=== PATIENT | male | born 1945 | race Caucasian/White ===

== ENCOUNTER 2017-01-14 13:00 | Outpatient (CLI) | payer MEDICARE, BC ==
[2013-08-18 08:54] VITALS: BMI 31.9
[~2017-01-14 13:00] MED LIST: BENADRYL INJ50 MG/ML IV; BENADRYL50 MG PO; CHILDREN'S ASPI81 MG PO; COZAAR100 MG PO; ELAVIL25 MG PO; GLUCAGON1 MG/KIT IM; GLUCAGON1 MG/KIT SQ; GLUCOPHAGE500 MG PO; HUMALOG 30100 UNITS/ SC; INSTA-GLUCOSE31 GM PO; LANTUS INSULIN10 ML SC; LEVOTHROID88 MCG PO; LOPRESSOR50 MG PO; LOVENOX30 MG/0.3 SQ; MYLANTA LIQUID355 ML PO; NARCAN INJ0.4 MG/ML IV; ONDANSETRON4 MG/2 M3 IV; PERCOCET 10/3251 TA1 PO; SALINE FLUSH10 ML IJ; VANCOMYCIN1 GM/2501 IV; ZOFRAN4 MG PO
[2017-01-14] MEDS ORDERED: NOVOLIN 70/30 110 ML SC (14:37)
[2017-01-14] MEDS ORDERED: NOVOLOG MIX 70/10 ML SQ (14:37)
[2017-01-14] MEDS ORDERED: NORVASC5 MG PO (14:40)
[2017-01-14] MEDS ORDERED: NEURONTIN 300300 MG PO (14:41)
[2017-01-14] MEDS ORDERED: MOBIC7.5 MG PO (14:41)
[2017-01-14] MEDS ORDERED: LIPITOR20 MG PO (14:42)
[2017-01-14] MEDS ORDERED: ACTOS15 MG PO (14:42)
[2017-01-14 15:09] LABS: HEMATOCRIT 45.4 % (42.0-54.0); HEMOGLOBIN 14.9 g/dL (13.5-17.5); MCH 28.5 pg (26.0-34.0); MCHC 32.8 g/dL (31.0-37.0); MEAN PLATELET VOLUME 11.4 fL (7.4-10.4); RBC 5.22 10x6/uL (4.20-6.10); RDW 13.2 % (11.5-14.5); WBC 8.8 10x3/uL (4.8-10.8)
[2017-01-14 15:23] LABS: ANION GAP 9.4 mmol/L (8-16); CALCIUM 10.5 mg/dL (8.5-10.1); CARBON DIOXIDE 32.8 mmol/L (21.0-32.0); CREATININE - SERUM 1.1 mg/dL (0.6-1.3); POTASSIUM - SERUM 4.2 mmol/L (3.5-5.1)
== END 2017-01-14 23:59 | disposition home or self-care (01) ==
LOC: D.PAN 13:00 → D.OPS 01-15 11:15 → EDSTATUS 01-15 11:15
PROVIDERS: Anesthesiology
DX: M65.30 Trigger finger, unspecified finger (principal); Z01.810 Encounter for preprocedural cardiovascular examination; Z01.811 Encounter for preprocedural respiratory examination; Z01.812 Encounter for preprocedural laboratory examination; Z53.9 Procedure and treatment not carried out, unspecified reason

== ENCOUNTER 2018-06-29 22:08 | Inpatient (IN) | payer MEDICARE, BC ==
[~2018-06-29] VITALS: Ht 188 cm; Wt 131.8 kg
--- NOTE | ~2018-06-29 | HEMODYNAMI ---
PATIENT:ROMARIO CASTRO JR MEDICAL RECORD: [id number] : 43 LOCATION:[facility] D.2134 ADMISSION DATE: 06/30/18 Generatedon:07/01/201811:47 Patient name: ROMARIO CASTRO Patient #: [id number] SSN: : 1945 Date of study: 07/01/2018 Page: Of Hemodynamic Procedure Report Patient Data Patient Demographics Procedure consent was obtained First Name: ROMARIO Gender: Male Last Name: GLORIA Suffix: [facility] Initial: Susie : 1945 Patient #: [id number] Age: 72 year(s) Race: Unknown Additional ID: [id number] Contact details Address: [address] [address] State: [place] City: [place] Zip code: [address] Past Medical History Allergies Allergen Reaction Date Comments Reported Other allergy 06/30/2018 acetamonophen, adhesive, indomethicin, oxycodone Admission Admission Data Admission Date: 06/30/2018 Admission Time: 0:26 Room #: D.2134 Lab Results Lab Result Date: 06/30/2018 Lab Result Time: 0:00 Biochemistry Name Units Result Min Max BUN mg/dl 21 --(----)-* 7 18 Creatinine mg/dl 1.1 --(--*-)-- 0.6 1.3 CBC Name Units Result Min Max Hemoglobin g/dl 13.5 --(*---)-- 13.5 17.5 Procedure Procedure Types Cath Procedure PCI Procedure Coronary Stent Coronary Stent Initial Procedure Description Procedure Date Procedure Date: 07/01/2018 Procedure Start Time: 11:30 Procedure End Time: 11:46 Procedure Staff Name Function Ace Armas MD Performing Physician Neftali Marvin RN Nurse Khoi Reynoso RT Scrub Eliud Renee RT Monitor Procedure Data Cath Procedure Fluoroscopy Diagnostic fluoroscopy Total fluoroscopy Time: 1.6 time: 1.6 min min Diagnostic fluoroscopy Total fluoroscopy dose: 681 dose: 681 mGy mGy Contrast Material Contrast Material Type Amount (ml) Isovue 300 67 Entry Location Entry Primary Successful Side Size Upsize Upsize Entry Closure Succes sful Closure Location (Fr) 1 (Fr) 2 (Fr) Remarks Device Remarks Femoral Right 6 Fr Exoseal artery Short Estimated blood loss: 10 ml Procedure Complications No complications Procedure Medications Medication Administration Route Dosage Oxygen etCO2 Nasal cannula 2 l/min Lidocaine 2% added to field 20 Heparin Flush Bag added to field 2 bags (1000units/500ml NS) 0.9% NaCl I.V. 100 ml/hr Versed I.V. 2 mg Fentanyl I.V. 100 mcg Lopressor I.V. 10 mg Heparin Bolus I.V. 4000 units Hemodynamics Rest HGB: 13.5 (g/dl) Heart Rate: 104 (bpm) Snapshots Pre Cath Intra NCS Post Cath Vital Signs Time Heart Resp SPO2 etCO2 NIBP Rhythm Pain Sedation Rate (ipm) (%) (mmHg) (mmHg) Status Level (bpm) 11:16:41 115 19 94 40.1 116/70(92) NSR 0 (11) 10(A) , No pain 11:20:47 104 12 92 21.9 122/74(92) NSR 0 (11) 10(A) , No pain 11:24:57 106 13 93 0 129/77(98) NSR 0 (11) 10(A) , No pain 11:29:03 106 15 94 0 117/77(97) NSR 0 (11) 10(A) , No pain 11:33:13 94 12 93 0 122/73(95) NSR 0 (11) 9(A) , No pain 11:37:20 91 17 94 29 110/63(81) NSR 0 (11) 9(A) , No pain 11:41:30 89 12 95 31.7 109/61(79) NSR 0 (11) 10(A) , No pain 11:45:38 90 16 95 113/66(78) NSR 0 (11) 10(A) , No pain Medications Time Medication Route Dose Verified Delivered Reason Notes Effectiveness by by 11:15:15 Oxygen etCO2 2 Ace Lindsay used for Nasal l/min Pawel Marvin ore charger cannula 11:15:23 Lidocaine 2% added 20ml Ace Bello for local to vial Pawel Armas MD anesthetic field 11:15:29 Heparin Flush added 2 Ace Bello used for Bag to bags Pawel Armas MD procedure (1000units/500ml field NS) 11:15:36 0.9% NaCl I.V. 100 Ace Lindsay Per physician ml/hr Pawel Marvin RN 11:29:42 Versed I.V. 2 mg Ace Lindsay for sedation Pawel Marvin RN 11:29:48 Fentanyl I.V. 100 Ace Lindsay for sedation mcg Pawel Marvin RN 11:30:55 Lopressor I.V. 10 mg Ace Lindsay Per physician Pawel Marvin RN 11:33:05 Heparin Bolus I.V. 4000 Ace Lindsay for verif ied units Pawel Marvin RN anticoagulation with dr armas Procedure Log Time Note 10:35:13 Neftali Marvin RN sent for patient. Start room use. 10:54:22 Time tracking: Regular hours (M-F 7:00 - 5:00) 10:54:26 Plan of Care:Hemodynamics will remain stable., Cardiac rhythm will remain stable., Comfort level will be maintained., Respiratory function will remain adequate., Patient/ family verbilizes understanding of procedure., Procedure tolerated without complication., Recovers from procedure without complications.. 11:03:01 Patient received from PCU to CCL 2 Alert and oriented. Tansferred to table in Supine position. 11:03:02 Warm blankets applied, and jessica hugger turned on for patient comfort. 11:03:03 Correct patient and procedure confirmed by team. 11:03:04 Signed procedure consent form obtained from patient. 11:03:05 ECG and BP/O2 sat monitors applied to patient. 11:15:15 Oxygen 2 l/min etCO2 Nasal cannula was administered by Neftali Marvin RN; used for procedure; 11:15:23 Lidocaine 2% 20ml vial added to field was administered by Ace Armas MD; for local anesthetic; 11:15:29 Heparin Flush Bag (1000units/500ml NS) 2 bags added to field was administered by Ace Armas MD; used for procedure; 11:15:36 0.9% NaCl 100 ml/hr I.V. was administered by Neftali Marvin RN; Per physician; 11:15:39 Vital chart was started 11:19:28 Baseline sample Acquired. 11:19:34 Rhythm: sinus rhythm 11:19:35 Full Disclosure recording started 11:19:38 H&P Date Dictated: 07/01/2018 Within 30 days and on chart.. 11:19:39 Pre-procedure instructions explained to patient. 11:19:39 Pre-op teaching completed and patient verbalized understanding. 11:19:41 Family in patients room. 11:19:42 Patient NPO since Midnight. 11:19:43 Is the patient allergic to Iodine/contrast media? No. 11:19:44 Is patient on blood thinner?Yes 11:19:47 ACC The patient was administered the following blood thiners within the last 24 hours: ACCPlavix 11:20:02 Patient diabetic? Yes. 11:20:03 If diabetic: On Metformin? No 11:20:08 Previous problem with sedation/anesthesia? No ? 11:20:09 Snore? Yes 11:20:11 Sleep apnea? No 11:20:12 Deviated septum? No 11:20:13 Opens mouth fully? Yes 11:20:14 Sticks out tongue? Yes 11:20:16 Airway obstruction? No ? 11:20:19 Dentures? No ? 11:28:00 Unable to palpate left distal pulse due to left aka. 11:28:19 Patient pain scale 0/10 ?. 11:28:22 IV patent on arrival in left forearm with 0.9% NaCl at [facility]. 11:28:24 Lab results completed and on chart. 11:28:26 Left groin area was prepped with chlora-prep and draped in sterile fashion 11:28:27 Alarms reviewed by R. N. 11:28:27 Sharps counted by scrub and verified by R.N. 11:28:28 --------ALL STOP TIME OUT------ 11:28:29 Final Timeout: patient, procedure, and site verified with staff and physician. All members of the team are in agreement. 11:28:33 Left groin site verified by team. 11:28:36 Physical assessment completed. ASA score P 3 - A patient with severe systemic disease as per Ace Armas MD. 11:28:39 Sedation plan: IV Moderate Sedation Medication:Versed, Fentanyl 11::42 Versed 2 mg I.V. was administered by Neftali Marvin RN; for sedation; 11:29:48 Fentanyl 100 mcg I.V. was administered by Neftali Marvin RN; for sedation; 11:30:38 Use device set Radial Dx or PCI 11:30:42 Use device set TAUTH PCI 11:30:45 Procedure started. 11:30:51 Local anesthetic to left femerol artery with Lidocaine 2% by Ace Armas MD.INITIAL ACCESS ONLY 11:30:55 Lopressor 10 mg I.V. was administered by Neftali Marvin RN; Per physician; 11:31:10 A 6 Fr Short sheath was inserted into the Right Femoral artery 11:31:25 ACIST Syringe (75634) opened to sterile field. 11:31:25 Medline Cath Pack ([id number]) opened to sterile field. 11:31:26 Bag Decanter (2002) opened to sterile field. 11:31:27 Tegaderm 4 x 4 (1626W) opened to sterile field. 11:31:29 ACIST Manifold (01681) opened to sterile field. 11:31:30 ACIST Hand Control (01392) opened to sterile field. 11:31:31 DIAGNOSTIC WIRE .035 260cm J wire (052042) opened to sterile field. 11:31:36 INFLATOR Merit BasixCompak (PX9702) opened to sterile field. 11:31:39 CHOICE PT Extra Support 182cm wire ([id number]) opened to sterile field. 11:31:41 GUIDE 6FR XBLAD 3.5 catheter ([id number]) opened to sterile field. 11:31:43 SHEATH Prelude 6Fr 0.035 (CWE-1L-76-035) opened to sterile field. 11:31:56 6 Fr XBLAD 3.5 guide catheter was inserted over the wire 11:32:48 CPTXS wire advanced. 11:33:05 Heparin Bolus 4000 units I.V. was administered by Neftali Marvin RN; for anticoagulation; verified with dr armas 11:33:19 Wire advanced across lesion. 11:34:53 Place stent Inflation Number: 1 A SADAF RX 2.5 x 18 stent ([id number]) was prepped and advanced across the Mid LAD. The stent was deployed at 15 LISA for 0:10 (min:sec). 11:35:53 EXOSEAL 6Fr (EX600) opened to sterile field. 11:35:58 Stent catheter was removed intact over wire. 11:35:59 Wire removed. 11:35:59 Guide catheter removed. 11:36:11 Sheath removed intact; hemostasis achieved with Exoseal to the Right Femoral artery. 11:36:13 Procedure ended.(Physican Out) 11:36:26 Fluoroscopy time 01.60 minutes. 11:36:58 Flurop Dose total: 681 11:36:58 Fluoroscopy dose: 681 mGy 11:37:02 Contrast amount:Isovue 300 67ml. 11:37:03 Sharps counted by scrub and verified by R.N. 11:37:05 Insertion/operative site no bleeding no hematoma. 11:38:00 Post Procedure Pulses reassessed and unchanged 11:40:06 Post-procedure physical assessment completed. ASA score P 3 - A patient with severe systemic disease as per Ace Armas MD. 11:41:12 Post procedure rhythm: sinus rhythm 11:41:16 Estimated blood loss: 10 ml 11:41:17 Post procedure instruction explained to patient.Patient verbalizes understanding. 11:41:17 Patient needs reinforcement of post procedure teaching. 11:41:29 Procedure type changed to Cath procedure, PCI procedure, Coronary Stent, Coronary Stent Initial 11:41:31 Procedure and supply charges have been captured, reviewed, submitted and are correct. 11:41:35 Procedure Complication : No complications 11:46:21 Vital chart was stopped 11:46:22 See physician's report for complete and final results. 11:46:25 Report given to PCU. 11:46:29 Patient transfered to PCU with Bed. 11:46:31 Procedure ended. 11:46:31 Full Disclosure recording stopped 11:46:34 End room use (Document Last) Intervention Summary Intervention Notes Time ActionType Lesion and Equipment Used Action# Pressure Duration Attributes 11:34:53 Place stent Mid LAD SADAF RX 2.5 x 1 15 00:10 18 stent ([id number]) Device Usage Item Name Manufacture Quantity Catalog Number Hospital Part Current Minimal Lot# / Charge Number Stock Stock Serial# Code ACIST Syringe Acist 1 71619 808926 152606 490486 20 (79155) Swyzzle Medline Cath Medline 1 [id number] 278224 96676 634412 5 Pack ([id number]) Bag Decanter Microtek 1 2002S 306488 68414 279187 5 (2001S) Medical Inc. Tegaderm 4 x 4 3M 1 1626W 387130 540376 836008 5 (1626W) ACIST Manifold Acist 1 10596 603034 925054 214982 5 (39955) Medical Systems Inc ACIST Hand Acist 1 86079 492605 180417 151823 5 Control (31211) Medical Systems Inc DIAGNOSTIC WIRE St Niraj 1 517294 508710 146643 513312 30 .035 260cm J wire (559216) INFLATOR Merit Merit 1 OL0826 291406 146147 164302 15 BasixIlex [employer] Medical (CQ4586) CHOICE PT Extra Calipatria 1 [id number] 470902 214235 213714 5 Support 182cm Scientific wire ([id number]) GUIDE 6FR XBLAD Cardinal 1 16382666 388433 994535 349928 10 3.5 catheter Health (54274982) SHEATH Prelude Merit 1 XRL-2W-98-35 842495 6153975 377070 5 6Fr 0.035 Medical (TJI-6R-50-035) SADAF RX 2.5 x Medtronic 1 [id number] 876082 5395407 939356 5 [id number] 18 stent ([id number]) EXOSEAL 6Fr Cardinal 1 EX600 278585 767768 560535 10 (EX600) Health Signature Audit [place] Stage Time Signature Unsigned Intra-Procedure 07/01/2018 Eliud Renee 11:46:57 AM RT(R) Signatures Monitor : Eliud Renee RT Signature : Date : Time : [address] [address]
--- NOTE | ~2018-06-29 | OP ---
PATIENT NAME: ROMARIO CASTRO JR MEDICAL RECORD: [id number] :43 LOCATION:D.M2 D.2134 ADMISSION DATE:06/30/18 SURGEON: BRUNO CHRISTIANSON MD DATE OF OPERATION: 06/30/2018 PROCEDURES: 1. PTCA stent RCA. 2. Left heart catheterization. 3. Selective coronary angiography. 4. Left ventriculogram. INDICATION: Angina and coronary artery disease. PROCEDURE IN DETAIL: After informed consent was obtained and after a detailed description of risks, benefits as well as alternative therapies, the patient elected to proceed with angiogram and angioplasty. The right radial area was prepped and draped in normal sterile fashion. Right radial artery was cannulated via modified Seldinger technique with placement of 6-Thai sheath. All catheters exchanged through this sheath. FINDINGS: Left ventriculogram was performed in standard 30-degree HASKINS view, reveals good cardiac wall motion throughout all segments. Overall ejection fraction estimated 60%. SELECTIVE CORONARY ANGIOGRAPHY: 1. Left main is with no significant angiographic disease. 2. Left anterior descending has 90% stenosis in the mid vessel. 3. Left circumflex has 80% and 90% stenosis mid vessel. 4. Right coronary artery has 99% stenosis times 2 throughout the mid distal vessel. PTCA STENT OF THE RCA: The stent used was a 2.25 x 38 mm Valdo. Proximally, there is 80% stenosis. This is a 3.0 x 12 Valdo. Result was 0% residual stenosis. OVERALL IMPRESSION: Successful PTCA stent of the RCA going from 99% initial stenosis to 0% residual. PLAN: PTCA stent of the circumflex and LAD in the near future. TRANSINT:[id number] Voice Confirmation ID: [id number] DOCUMENT ID: [id number] BRUNO CHRISTIANSON MD at 1914 CC: [id number] DICTATION DATE: 06/30/18 1147 FILM MAKER: 06/30/18 1257 DIS IN 07/03/18 [id number] [place] [address]
--- NOTE | ~2018-06-29 | MORECARE ---
CASE MANAGEMENT DISCHARGE SUMMARY PATIENT: ROMARIO CASTRO JR UNIT: [id number] ADM DATE: 06/30/18 AGE: 72 : 43 SEX: M ROOM/BED: D.4067 AUTHOR: VAL,DOC PHYSICIAN: REFERRING PHYSICIAN: JONNIE BARTON MD DATE OF SERVICE: 07/03/18 Discharge Plan Patient Name: ROMARIO CASTRO Facility: [facility]:[place] : 1945 Planned Disposition: Home Anticipated Discharge Date: 07/03/18 Discharge Date: 07/03/2018 Expected LOS: 3 Initial Reviewer: [email or web address] Initial Review Date: 06/30/2018 Generated: 07/03/18 4:37 pm Comments DCP- Discharge Planning Updated by [email or web address]: Rufus Woods on 07/01/18 3:[address] Patient Name: ROMARIO CASTRO Admission Status: ER Accout number: [id number] Admission Date: 06-30-2018 : 1945 Admission Diagnosis: Attending: MICK, Current LOS: 1 Anticipated DC Date: 07-02-2018 Planned Disposition: Home Primary Insurance: MEDICARE A & B Discharge Planning Comments: CM MET WITH PT AND SPOUSE IN ROOM TO DISCUSS DISCHARGE PLANNING AND NEEDS. ROMARIO CASTRO provided verbal consent to discuss current and ongoing needs with/in the presence of: SPOUSE, KEM. PT REPORTS LIVING AT HOME INDEPENDENTLY WITH SPOUSE. PT REPORTS HAVING ALL NEEDED MEDICAL EQUIPMENT FROM [employer] AND [employer]. PT HAS SMALL WHEELCHAIR FOR THE HOME, LARGE WHEELCHAIR IN HIS TRUCK AND A POWER SCOOTER. 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 PT HAS NO OUTSIDE SERVICES ASSISTING IN THE HOME. CM DISCUSSED AVAILABILITY OF HOME HEALTH, REHAB SERVICES AND MEDICAL EQUIPMENT. PT DENIES DISCHARGE NEEDS, REPORTS HIS WILL PICK HIM UP FOR DISCHARGE HOME. IMPORTANT MESSAGE FROM MEDICARE PROVIDED AND EXPLAINED. PT ASKED ABOUT HAVING HIS TRUCK MODIFIED WITH A WINCH TO MAKE IT EASIER TO GET HIS WHEELCHAIR IN AND OUT OF HIS TRUCK WELL IF IT WOULD BE COVERED BY MEDICARE. CM EXPLAINED THAT THIS IS UNKNOWN TO CM. CM CALLED [facility] WHO REFERRED CM TO DEPARTMENT OF MOTOR VEHICLES. [employer]V HAD NO INFORMATION OTHER THAN HOW TO OBTAIN PLACKARD AND LICENSE PLATES. CM PERFORMED INTERNET SEARCH AND FOUND [facility], , OPEN M-F, 8AM TO 4PM. CM LEFT MESSAGE REQUESTING INFORMATION AND PROVIDED PT AND SPOUSE THE PHONE NUMBER FOR CONTACT. PT PLANS TO DISCHARGE HOME WITH SPOUSE, DENIES NEEDS AT THIS TIME. CM TO FOLLOW AND ASSIST IF NEEDED. Molding Machine Tender: Rufus Woods DCPIA - Discharge Planning Initial Assessment Updated by [email or web address]: Rufus Woods on 07/01/18 4:21 pm * Is the patient Alert and Oriented? Yes * How many steps to enter\\exit or inside your home? RAMP * PCP DR. RICK CASTELAN * Pharmacy [facility] IN [place] * Preadmission Environment Home with Family * ADLs Independent * Equipment Other Power Chair or Electric Scooter Walker Wheelchair * Other Equipment LEFT ABOVE KNEE PROSTHESIS - [employer] - PREFERRED MEDICAL EQUIPMENT PROVIDER * List name and contact numbers for known caregivers / representatives who currently or will assist patient after discharge: KEM CASTRO, SPOUSE, * Verbal permission to speak to the caregivers and representatives has been obtained from the patient. Yes * Community resources currently utilized None * Please name any agencies selected above. NONE * Additional services required to return to the preadmission environment? No * Can the patient safely return to the preadmission environment? Yes * Has this patient been hospitalized within the prior 30 days at any hospital? No Coverage Notice Reviewer: [email or web address] - Rufus Woods Notice Issued Date-Time: 07/01/2018 16:00 Notice Type: IM Discharge Notice Notice Delivered To: Family Member Relationship to Patient: Spouse Repair Welder Name: kem castro Delivery Method: HAND - Hand Delivered Julia Days: Prior Verbal Notification: Recipient Understood Notice: Yes Recipient Signature: Yes Med Rec Note Co-signed by Attending: Coverage Notice Comment: Last DP export: 07/01/18 3:33 Patient Name: ROMARIO CASTRO Page 10217 at 1537 All edits/amendments must be made on the electronic document DICTATION DATE: 07/03/18 1536 ADMISSION NURSE: MARIA DOLORES 07/03/18 RPT#: [id number] DC DATE:07/03/18 STATUS: DIS IN [facility] [address] [facility] [place] [address] END OF REPORT
--- NOTE | ~2018-06-29 | OP ---
PATIENT NAME: ROMARIO CASTRO JR MEDICAL RECORD: [id number] :43 LOCATION:D.M2 D.2134 ADMISSION DATE:06/30/18 SURGEON: BRUNO CHRISTIANSON MD DATE OF OPERATION: 07/01/2018 PROCEDURES: 1. PTCA stent LAD. 2. Selective coronary angiography. INDICATION: Angina and coronary artery disease. PROCEDURE IN DETAIL: After informed consent was obtained and after a detailed explanation of risks, benefits as well as alternative therapies, the patient elected to proceed with angiogram and angioplasty. The left femoral area was prepped and draped in normal sterile fashion. Left femoral artery was cannulated via modified Seldinger technique with placement of 6-Syriac sheath. All catheters exchanged through this sheath. FINDINGS: The left anterior descending has 90% to 95% stenosis in the mid vessel. This was addressed with a 2.5 x 18 mm [place] stent. Result was 0% residual stenosis. OVERALL IMPRESSION: Successful PTCA stent of the LAD going from 90% to 95% initial stenosis to 0% residual. TRANSINT:[id number] Voice Confirmation ID: [id number] DOCUMENT ID: [id number] BRUNO CHRISTIANSON MD at 1914 CC: [id number] DICTATION DATE: 07/01/18 1146 SWIM INSTRUCTOR: 07/01/18 1235 DIS IN 07/03/18 [facility] [address] [place] [address]
--- NOTE | ~2018-06-29 | MORECARE ---
CASE MANAGEMENT DISCHARGE SUMMARY PATIENT: ROMARIO CASTRO JR UNIT: [id number] ADM DATE: 06/30/18 AGE: 72 : 44 SEX: M ROOM/BED: D.2134 AUTHOR: CINDY NEAL PHYSICIAN: REFERRING PHYSICIAN: JONNIE BARTON MD DATE OF SERVICE: 07/01/18 Discharge Plan Patient Name: ROMARIO CASTRO Facility: [facility]:[place] : 1945 Planned Disposition: Home Anticipated Discharge Date: 07/02/18 Discharge Date: Expected LOS: 2 Initial Reviewer: [email or web address] Initial Review Date: 06/30/2018 Generated: 07/01/18 5:23 pm DCPIA - Discharge Planning Initial Assessment Updated by [email or web address]: Rufus Woods on 07/01/18 4:21 pm * Is the patient Alert and Oriented? Yes * How many steps to enter\exit or inside your home? RAMP * PCP DR. RICK CASTELAN * Pharmacy [facility] IN [place] * Preadmission Environment Home with Family * ADLs Independent * Equipment Other Power Chair or Electric Scooter Walker Wheelchair * Other Equipment LEFT ABOVE KNEE PROSTHESIS - [employer] - PREFERRED MEDICAL EQUIPMENT PROVIDER * List name and contact numbers for known caregivers / representatives who currently or will assist patient after discharge: KEM CASTRO, SPOUSE, * Verbal permission to speak to the caregivers and representatives has been obtained from the patient. Yes * Community resources currently utilized None * Please name any agencies selected above. NONE * Additional services required to return to the preadmission environment? No * Can the patient safely return to the preadmission environment? Yes * Has this patient been hospitalized within the prior 30 days at any hospital? No Coverage Notice Reviewer: [email or web address] - Rufus Woods Notice Issued Date-Time: 07/01/2018 16:00 Notice Type: IM Discharge Notice Notice Delivered To: Family Member Relationship to Patient: Spouse Hyperbaric Nurse Name: kem castro Delivery Method: HAND - Hand Delivered Julia Days: Prior Verbal Notification: Recipient Understood Notice: Yes Recipient Signature: Yes Med Rec Note Co-signed by Attending: Coverage Notice Comment: Patient Name: ROMARIO CASTRO Page [id number] at 1623 All edits/amendments must be made on the electronic document DICTATION DATE: 07/01/181622 PLUGGER MAN: MARIA DOLORES 07/01/181622 RPT#: [id number] DC DATE: STATUS: ADM IN [facility] [address] [place] [address] END OF REPORT
--- NOTE | ~2018-06-29 | MORECARE ---
CASE MANAGEMENT DISCHARGE SUMMARY PATIENT: ROMARIO CASTRO JR UNIT: [id number] ADM DATE: 06/30/18 AGE: 72 : 44 SEX: M ROOM/BED: D.6693 AUTHOR: VAL,DOC PHYSICIAN: REFERRING PHYSICIAN: JONNIE BARTON MD DATE OF SERVICE: 07/01/18 Discharge Plan Patient Name: ROMARIO CASTRO Facility: [facility]:[place] : 1945 Planned Disposition: Home Anticipated Discharge Date: 07/02/18 Discharge Date: Expected LOS: 2 Initial Reviewer: [email or web address] Initial Review Date: 06/30/2018 Generated: 07/01/18 5:33 pm Comments DCP- Discharge Planning Updated by [email or web address]: Rufus Woods on 07/01/18 3:[address] Patient Name: ROMARIO CASTRO Admission Status: ER Accout number: [id number] Admission Date: 06-30-2018 : 1945 Admission Diagnosis: Attending: MICK, Current LOS: 1 Anticipated DC Date: 07-02-2018 Planned Disposition: Home Primary Insurance: MEDICARE A & B Discharge Planning Comments: CM MET WITH PT AND SPOUSE IN ROOM TO DISCUSS DISCHARGE PLANNING AND NEEDS. ROMARIO CASTRO provided verbal consent to discuss current and ongoing needs with/in the presence of: SPOUSE, KEM. PT REPORTS LIVING AT HOME INDEPENDENTLY WITH SPOUSE. PT REPORTS HAVING ALL NEEDED MEDICAL EQUIPMENT FROM [employer] [facility] [employer]. PT HAS SMALL WHEELCHAIR FOR THE HOME, LARGE WHEELCHAIR IN HIS TRUCK AND A POWER SCOOTER. 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 PT HAS NO OUTSIDE SERVICES ASSISTING IN THE HOME. CM DISCUSSED AVAILABILITY OF HOME HEALTH, REHAB SERVICES AND MEDICAL EQUIPMENT. PT DENIES DISCHARGE NEEDS, REPORTS HIS WILL PICK HIM UP FOR DISCHARGE HOME. IMPORTANT MESSAGE FROM MEDICARE PROVIDED AND EXPLAINED. PT ASKED ABOUT HAVING HIS TRUCK MODIFIED WITH A WINCH TO MAKE IT EASIER TO GET HIS WHEELCHAIR IN AND OUT OF HIS TRUCK WELL IF IT WOULD BE COVERED BY MEDICARE. CM EXPLAINED THAT THIS IS UNKNOWN TO CM. CM CALLED [facility] WHO REFERRED CM TO DEPARTMENT OF MOTOR VEHICLES. DMV HAD NO INFORMATION OTHER THAN HOW TO OBTAIN PLACKARD AND LICENSE PLATES. CM PERFORMED INTERNET SEARCH AND FOUND [place] [facility], , OPEN M-F, 8AM TO 4PM. CM LEFT MESSAGE REQUESTING INFORMATION AND PROVIDED PT AND SPOUSE THE PHONE NUMBER FOR CONTACT. PT PLANS TO DISCHARGE HOME WITH SPOUSE, DENIES NEEDS AT THIS TIME. CM TO FOLLOW AND ASSIST IF NEEDED. Peoplesoft Hr Developer: Rufus Woods DCPIA - Discharge Planning Initial Assessment Updated by [email or web address]: Rufus Woods on 07/01/18 4:21 pm * Is the patient Alert and Oriented? Yes * How many steps to enter\\exit or inside your home? RAMP * PCP DR. RICK CASTELAN * Pharmacy [facility] IN [place] * Preadmission Environment Home with Family * ADLs Independent * Equipment Other Power Chair or Electric Scooter Walker Wheelchair * Other Equipment LEFT ABOVE KNEE PROSTHESIS - [employer] - PREFERRED MEDICAL EQUIPMENT PROVIDER * List name and contact numbers for known caregivers / representatives who currently or will assist patient after discharge: KEM CASTRO, SPOUSE, * Verbal permission to speak to the caregivers and representatives has been obtained from the patient. Yes * Community resources currently utilized None * Please name any agencies selected above. NONE * Additional services required to return to the preadmission environment? No * Can the patient safely return to the preadmission environment? Yes * Has this patient been hospitalized within the prior 30 days at any hospital? No Coverage Notice Reviewer: [id number] - Rufus Woods Notice Issued Date-Time: 07/01/2018 16:00 Notice Type: IM Discharge Notice Notice Delivered To: Family Member Relationship to Patient: Spouse Cyber Intelligence Analyst Name: kem castro Delivery Method: HAND - Hand Delivered Julia Days: Prior Verbal Notification: Recipient Understood Notice: Yes Recipient Signature: Yes Med Rec Note Co-signed by Attending: Coverage Notice Comment: Last DP export: 07/01/18 3:23 Patient Name: ROMARIO CASTRO Page 18202 at 1633 All edits/amendments must be made on the electronic document DICTATION DATE: 07/01/18 1633 CLOUD INFRASTRUCTURE ARCHITECT: MARIA DOLORES 07/01/18 1633 RPT#: [id number] DC DATE: STATUS: ADM IN [facility] [address] [place] [address] END OF REPORT
--- NOTE | ~2018-06-29 | HEMODYNAMI ---
PATIENT:ROMARIO CASTRO JR MEDICAL RECORD: [id number] : 43 LOCATION:[facility] D.2134 ADMISSION DATE: 06/30/18 Generatedon:06/30/201811:47 Patient name: ROMARIO CASTRO Patient #: [id number] SSN: : 1945 Date of study: 06/30/2018 Page: Of Hemodynamic Procedure Report Patient Data Patient Demographics Procedure consent was obtained First Name: ROMARIO Gender: Male Last Name: GLORIA Suffix: [facility] Initial: Susie : 1945 Patient #: [id number] Age: 72 year(s) Race: Unknown Additional ID: [id number] Contact details Address: [place] [address] State: [place] City: [place] Zip code: [address] Past Medical History Allergies Allergen Reaction Date Comments Reported Other allergy 06/30/2018 acetamonophen, adhesive, indomethicin, oxycodone Admission Admission Data Admission Date: 06/30/2018 Admission Time: 0:26 Room #: D.2134 Lab Results Lab Result Date: 06/30/2018 Lab Result Time: 0:00 Biochemistry Name Units Result Min Max BUN mg/dl 21 --(----)-* 7 18 Creatinine mg/dl 1.1 --(--*-)-- 0.6 1.3 CBC Name Units Result Min Max Hemoglobin g/dl 13.5 --(*---)-- 13.5 17.5 Procedure Procedure Types Cath Procedure Diagnostic Procedure LHC LHC w/Coronaries Sedation Charges Moderate Sedation up to 15 minutes PCI Procedure Coronary Stent Coronary Stent Initial Procedure Description Procedure Date Procedure Date: 06/30/2018 Procedure Start Time: 11:26 Procedure End Time: 11:46 Procedure Staff Name Function Ace Armas MD Performing Physician Sandra Petersen RT Monitor Eulalia Mcginnis RT Scrub Sarah Villasenor RN Nurse Procedure Data Cath Procedure Fluoroscopy Diagnostic fluoroscopy Total fluoroscopy Time: 4.7 time: 4.7 min min Diagnostic fluoroscopy Total fluoroscopy dose: dose: 1354 mGy 1354 mGy Contrast Material Contrast Material Type Amount (ml) Isovue 300 105 Entry Location Entry Primary Successful Side Size Upsize Upsize Entry Closure Nugent ccessful Closure Location (Fr) 1 (Fr) 2 (Fr) Remarks Device Remarks Radial Right 6 Fr Mechanical artery Short Compression Estimated blood loss: 10 ml Diagnostic catheters Device Type Used For End Catheter Placement DIAGNOSTIC [place] 110cm 5 LV Angiography Fr catheter ([id number]) DIAGNOSTIC [place] 110cm 5 Left Coronary Fr catheter (587407) Angiography DIAGNOSTIC [place] 110cm 5 Right Coronary Fr catheter ([id number]) Angiography Procedure Complications No complications Procedure Medications Medication Administration Route Dosage 0.9% NaCl I.V. 100 ml/hr Oxygen etCO2 Nasal cannula 2 l/min Lidocaine 2% added to field 20 Heparin Flush Bag added to field 2 bags (1000units/500ml NS) Radial Cocktail added to field 1 syringe (Verapomil 2mg/Nitro 400mcg/Heparin 1500units) Versed I.V. 2 mg Fentanyl I.V. 100 mcg Versed I.V. 2 mg Fentanyl I.V. 50 mcg Lopressor I.V. 5 mg Heparin Bolus I.V. 4000 units Plavix P.O. 75 mg Versed I.V. 1 mg Hemodynamics Rest HGB: 13.5 (g/dl) Heart Rate: 111 (bpm) Snapshots Pre Cath Intra NCS Post Cath Vital Signs Time Heart Resp SPO2 etCO2 NIBP (mmHg) Rhythm Pain Sedation Rate (ipm) (%) (mmHg) Status Level (bpm) 11:06:28 111 11 96 35 153/93(118) NSR 0 (11) 10(A) , No pain 11:10:52 111 13 95 36 146/89(116) NSR 0 (11) 10(A) , No pain 11:15:12 109 20 95 37 150/92(116) NSR 0 (11) 10(A) , No pain 11:19:34 109 12 95 38.3 147/91(111) NSR 0 (11) 10(A) , No pain 11:23:57 109 11 96 38 139/90(112) NSR 0 (11) 10(A) , No pain 11:28:19 109 10 94 37.6 140/84(102) NSR 0 (11) 10(A) , No pain 11:32:47 107 13 97 38 132/78(103) NSR 0 (11) 10(A) , No pain 11:37:11 99 14 96 37.3 126/79(99) NSR 0 (11) 9(A) , No pain 11:41:33 98 12 96 38.2 135/78(101) NSR 0 (11) 10(A) , No pain 11:46:00 99 16 94 0 135/80(98) NSR 0 (11) 10(A) , No pain Medications Time Medication Route Dose Verified Delivered Reason Not es Effectiveness by by 11:09:48 0.9% NaCl I.V. 100 Ace Sarah used for ml/hr Pawel Villasenor clinical quality assurance specialist 11:09:56 Oxygen etCO2 2 l/min Ace Sarah used for Nasal Pawel Villasenor procedure cannula RN 11:10:03 Lidocaine 2% added 20ml Ace Ace for local to vial Pawel Armas MD anesthetic field 11:10:09 Heparin Flush added 2 bags Ace Ace used for Bag to Pawel Armas MD procedure (1000units/500ml field NS) 11:16:25 Radial Cocktail added 1 Ace Ace used for (Verapomil to syringe Pawel Armas MD procedure 2mg/Nitro field 400mcg/Heparin 1500units) 11:21:48 Versed I.V. 2 mg Ace Sarah for sedation Pawel Villasenor RN 11:21:59 Fentanyl I.V. 100 mcg Ace Sarah for sedation Pawel Villasenor RN 11:27:37 Versed I.V. 2 mg Ace Sarah for sedation Pawel Villasenor RN 11:27:49 Fentanyl I.V. 50 mcg Ace Sarah for sedation Pawel Villasenor RN 11:32:09 Lopressor I.V. 5 mg Ace Sarah Per physician Pawel Villasenor RN 11:32:41 Heparin Bolus I.V. 4000 Ace Sarah for rabia ified units Pawel Villasenor anticoagulation with Dr. TOMA Armas 11:33:50 Plavix P.O. 75 mg Ace Sarah for Pawel Villasenor antiplatelet RN therapy 11:35:02 Versed I.V. 1 mg Ace Sarah for sedation Pawel Villasenor RN Procedure Log Time Note 10:40:49 Sarah Villasenor RN sent for patient. Start room use. 10:44:58 Time tracking: Regular hours (M-F 7:00 - 5:00) 10:45:03 Plan of Care:Hemodynamics will remain stable., Cardiac rhythm will remain stable., Comfort level will be maintained., Respiratory function will remain adequate., Patient/ family verbilizes understanding of procedure., Procedure tolerated without complication., Recovers from procedure without complications.. 10:45:04 Signed procedure consent form obtained from patient. 10:45:14 H&P Date Dictated: 06/29/2018 Within 30 days and on chart.. 10:46:36 Lab Result : BUN 21 mg/dl 10:46:37 Lab Result : Hemoglobin 13.5 g/dl 10:46:37 Lab Result : Creatinine 1.1 mg/dl 10:58:01 Patient received from Med II to CCL 1 Alert and oriented. Tansferred to table in Supine position. 10:58:02 Warm blankets applied, and jessica hugger turned on for patient comfort. 10:58:02 Correct patient and procedure confirmed by team. 10:58:03 ECG and BP/O2 sat monitors applied to patient. 11:05:12 Vital chart was started 11:09:48 0.9% NaCl 100 ml/hr I.V. was administered by Sarah Villasenor RN; used for procedure; 11:09:56 Oxygen 2 l/min etCO2 Nasal cannula was administered by Sarah Villasenor RN; used for procedure; 11:10:03 Lidocaine 2% 20ml vial added to field was administered by Ace Armas MD; for local anesthetic; 11:10:09 Heparin Flush Bag (1000units/500ml NS) 2 bags added to field was administered by Ace Armas MD; used for procedure; 11:11:30 Baseline sample Acquired. 11:13:07 Rhythm: sinus tachycardia 11:13:10 Full Disclosure recording started 11:13:11 Pre-procedure instructions explained to patient. 11:13:12 Pre-op teaching completed and patient verbalized understanding. 11:13:13 Family in patients room. 11:13:14 Patient NPO since Midnight. 11:14:12 Patient allergic to Other allergyacetamonophen, adhesive, indomethicin, oxycodone 11:14:15 Is the patient allergic to Iodine/contrast media? No. 11:14:17 Is patient on blood thinner?Yes 11:14:20 ACC The patient was administered the following blood thiners within the last 24 hours: ACCPlavix 11:14:22 Patient diabetic? Yes. 11:14:35 If diabetic: On Metformin? No 11:14:41 Previous problem with sedation/anesthesia? No ? 11:14:42 Snore? Yes 11:14:43 Sleep apnea? No 11:14:43 Deviated septum? No 11:14:44 Opens mouth fully? Yes 11:14:45 Sticks out tongue? Yes 11:14:46 Airway obstruction? No ? 11:14:48 Dentures? No ? 11:15:32 PATIENT HAS LEFT AKA. LT FEMORAL PULSE IS +3 11:15:33 PATIENT HAS DEEP RED RASH ON RIGHT GROIN 11:15:36 Patient pain scale 0/10 ?. 11:15:43 IV patent on arrival in left wrist with 0.9% NaCl at [facility]. 11:15:50 Right Radial & Left Groin area was prepped with chlora-prep and draped in sterile fashion 11:15:51 Alarms reviewed by R. N. 11:15:51 Sharps counted by scrub and verified by R.N. 11:16:25 Radial Cocktail (Verapomil 2mg/Nitro 400mcg/Heparin 1500units) 1 syringe added to field was administered by Ace Armas MD; used for procedure; 11:16:27 Use device set Radial Dx or PCI 11:16:28 ACIST Syringe (20381) opened to sterile field. 11:16:29 Medline Cath Pack ([id number]) opened to sterile field. 11:16:29 Bag Decanter (2002) opened to sterile field. 11:16:29 DIAGNOSTIC WIRE .035 260cm J wire (387352) opened to sterile field. 11:16:30 ACIST Hand Control (57535) opened to sterile field. 11:16:30 ACIST Manifold (66193) opened to sterile field. 11:16:31 Tegaderm 4 x 4 (1626W) opened to sterile field. 11:16:32 MBrace Wrist Support ([id number]) opened to sterile field. 11:16:33 SHEATH 6Fr Prelude Radial ([id number]) opened to sterile field. 11:20:01 Final Timeout: patient, procedure, and site verified with staff and physician. All members of the team are in agreement. 11:20:05 Right Radial site verified by team. 11:20:07 Physical assessment completed. ASA score P 2 - A patient with mild systemic disease as per Ace Armas MD. 11:20:10 Sedation plan: IV Moderate Sedation Medication:Versed, Fentanyl 11:21:48 Versed 2 mg I.V. was administered by Sarah Villasenor RN; for sedation; 11:21:59 Fentanyl 100 mcg I.V. was administered by Sarah Villasenor RN; for sedation; 11:22:14 Zero performed for pressure channel P1 11:26:02 Procedure started. 11:26:08 Local anesthetic to right radial artery with Lidocaine 2% by Ace Armas MD.INITIAL ACCESS ONLY 11:26:41 A 6 Fr Short sheath was inserted into the Right Radial artery 11:26:50 A DIAGNOSTIC [place] 110cm 5 Fr catheter (212136) was advanced over the wire and used for LV Angiography. 11:27:37 Versed 2 mg I.V. was administered by Sarah Villasenor RN; for sedation; 11:27:49 Fentanyl 50 mcg I.V. was administered by Sarah Villasenor RN; for sedation; 11:28:42 LV gram done using HASKINS 11:28:46 Injector settings: Ml/sec: 5, Volume: 15, 11:28:52 EF : 50 % 11:29:08 A DIAGNOSTIC [place] 110cm 5 Fr catheter (346701) was advanced over the wire and used for Left Coronary Angiography. 11:29:46 Use device set TAU PCI 11:29:47 SHEATH Prelude 6Fr 0.035 (EGP-4G-70-035) opened to sterile field. 11:29:54 CHOICE PT Extra Support 182cm wire ([id number]) opened to sterile field. 11:30:00 INFLATOR Merit BasixCompak (TU3832) opened to sterile field. 11:30:22 A DIAGNOSTIC [place] 110cm 5 Fr catheter (488356) was advanced over the wire and used for Right Coronary Angiography. 11:30:43 GUIDE 6FR AR 2.0 SH catheter ([id number]) opened to sterile field. 11:32:09 Lopressor 5 mg I.V. was administered by Sarah Villasenor RN; Per physician; 11:32:28 6 Fr AR 2.0 SH guide catheter was inserted over the wire 11:32:41 Heparin Bolus 4000 units I.V. was administered by Sarah Villasenor RN; for anticoagulation; verified with Dr. Armas 11:33:03 CHOICE PT ES wire advanced. 11:33:50 Plavix 75 mg P.O. was administered by Sarah Villasenor RN; for antiplatelet therapy; 11:35:02 Versed 1 mg I.V. was administered by Sarah Villasenor RN; for sedation; 11:35:20 Inflate balloon Inflation number: 1 A EUPHORA 2.5 x 20 Balloon ([id number]) was prepped and advanced across the Dist RCA, then inflated to 7 LISA for 0:05 (min:sec). 11:35:29 Inflation number: 2 The EUPHORA 2.5 x 20 Balloon ([id number]) was reinflated across the Dist RCA, to 7 LISA for 0:05 (min:sec). 11:35:54 Inflation number: 3 The EUPHORA 2.5 x 20 Balloon ([id number]) was reinflated across the Dist RCA, to 7 LISA for 0:03 (min:sec). 11:36:06 Balloon removed over the wire. 11:38:42 Place stent Inflation Number: 4 A SADAF RX 2.25 x 34 stent ([id number]) was prepped and advanced across the Dist RCA. The stent was deployed at 13 LISA for 0:05 (min:sec). 11:39:09 Stent catheter was removed intact over wire. 11:40:34 Place stent Inflation Number: 1 A SADAF RX 3.0 x 12 stent ([id number]) was prepped and advanced across the Prox RCA. The stent was deployed at 13 LISA for 0:09 (min:sec). 11:40:48 Stent catheter was removed intact over wire. 11:40:49 Wire removed. 11:40:50 Guide catheter removed. 11:40:57 Sheath removed intact; hemostasis achieved with Mechanical Compression to the Right Radial artery. 11:41:00 Procedure ended.(Physican Out) 11:41:39 Fluoroscopy time 04.70 minutes. 11:41:49 Fluoroscopy dose: 1354 mGy 11:41:49 Flurop Dose total: 1354 11:41:53 Contrast amount:Isovue 300 105ml. 11:41:54 Sharps counted by scrub and verified by R.N. 11:41:56 TR band inflated with 12cc of air. 11:41:57 Insertion/operative site no bleeding no hematoma. 11:42:07 Post right radial artery:stable, clean and dry 11:42:09 Post Procedure Pulses reassessed and unchanged 11:42:11 Post-procedure physical assessment completed. ASA score P 2 - A patient with mild systemic disease as per Ace Armas MD. 11:42:13 Post procedure rhythm: unchanged. 11:42:16 Estimated blood loss: 10 ml 11:42:18 Post procedure instruction explained to patient.Patient verbalizes understanding. 11:42:18 Patient needs reinforcement of post procedure teaching. 11:42:56 Procedure type changed to Cath procedure, Diagnostic procedure, LHC, LHC w/Coronaries, Sedation Charges, Moderate Sedation up to 15 minutes, PCI procedure, Coronary Stent, Coronary Stent Initial 11:43:10 Procedure Complication : No complications 11:43:12 See physician's report for complete and final results. 11:43:28 TR BAND Large ([id number]) opened to sterile field. 11:43:52 Procedure and supply charges have been captured, reviewed, submitted and are correct. 11:46:20 Vital chart was stopped 11:46:23 Report given to PCU. 11:46:26 Patient transfered to PCU with Bed. 11:46:34 Procedure ended. 11:46:34 Full Disclosure recording stopped 11:46:37 End room use (Document Last) Intervention Summary Intervention Notes Time ActionType Lesion and Equipment Used Action# Pressure Duration Attributes 11:35:20 Inflate Dist RCA EUPHORA 2.5 x 1 7 00:05 balloon 20 Balloon ([id number]) 11:35:29 Reinflate Dist RCA EUPHORA 2.5 x 2 7 00:05 balloon 20 Balloon ([id number]) 11:35:54 Reinflate Dist RCA EUPHORA 2.5 x 3 7 00:03 balloon 20 Balloon ([id number]) 11:38:42 Place stent Dist RCA SADAF RX 2.25 x 4 13 00:05 34 stent ([id number]) 11:40:34 Place stent Prox RCA SADAF RX 3.0 x 1 13 00:09 12 stent ([id number]) Device Usage Item Name Manufacture Quantity Catalog Number Hospital Part Current Minimal Lot# / Charge Number Stock Stock Serial# Code ACIST Syringe Acist 1 29440 595860 819099 119765 20 (45301) Medical Systems Inc Medline Cath Medline 1 [id number] 968852 16717 262727 5 Pack ([id number]) Bag Decanter Microtek 1 2001S 357112 36287 821275 5 (2001S) Medical Inc. DIAGNOSTIC WIRE St Niraj 1 904317 483603 153951 971959 30 .035 260cm J wire (985064) ACIST Hand Acist 1 96970 232449 750263 673863 5 Control (17708) Medical Systems Inc ACIST Manifold Acist 1 27778 308630 452939 493330 5 (38281) Medical Systems Inc Tegaderm 4 x 4 3M 1 1626W 937311 002440 882501 5 (1626W) MBrace Wrist Advanced 1 140-0250-00 708367 83043 365672 5 Support Vascular ([id number]) Dynamics SHEATH 6Fr Merit 1 [id number] 961744 334765 584309 5 Prelude Radial Medical ([id number]) DIAGNOSTIC Terumo 1 40-5733 386069 645241 732434 5 Quincy 110cm 5 Fr catheter (470207) SHEATH Prelude Merit 1 DOA-3E-[id number] 071958 0179427 815831 5 6Fr 0.035 Medical ([id number]-[id number]) CHOICE PT Extra [place] 1 [id number] 724450 214337 774887 5 Support 182cm Scientific wire ([id number]) INFLATOR Merit Merit 1 RT8922 881905 147756 110311 15 [place] [employer] Medical (NR0979) GUIDE 6FR AR Medtronic 1 [id number] 109427 91191 964273 1 2.0 SH catheter ([id number]) EUPHORA 2.5 x Medtronic 1 [id number] 180279 510128 958936 5 [id number] 20 Balloon ([id number]) SADAF RX 2.25 x Medtronic 1 [id number] 378915 2533144 678549 5 [id number] 34 stent ([id number]) SADAF RX 3.0 x Medtronic 1 [id number] 476784 6326306 646528 5 [id number] 12 stent ([id number]) TR BAND Large Terumo 1 [id number] 842743 305241 767531 40 ([id number]) Signature Audit [place] Stage Time Signature Unsigned Intra-Procedure 06/30/2018 Sandra 11:47:55 AM Counts RT(R) Signatures Monitor : Sandra Signature : Counts RT Date : Time : [id number] [place] [address]
--- NOTE | ~2018-06-29 | HEMODYNAMI ---
PATIENT:ROMARIO CASTRO JR MEDICAL RECORD: [id number] : 43 LOCATION:[facility] D.2[address] [place] [address]# [id number] ADMISSION DATE: 06/30/18 Generatedon:07/02/201812:35 Patient name: ROMARIO CASTRO Patient #: [id number] SSN: : 1945 Date of study: 07/02/2018 Page: Of Hemodynamic Procedure Report Patient Data Patient Demographics Procedure consent was obtained First Name: ROMARIO Gender: Male Last Name: GLORIA Suffix: [facility] Initial: Susie : 1945 Patient #: [id number] Age: 72 year(s) Race: Unknown Additional ID: [id number] Contact details Address: [address] [address] State: [place] City: [place] Zip code: [address] Past Medical History Allergies Allergen Reaction Date Comments Reported Other allergy 06/30/2018 acetamonophen, adhesive, indomethicin, oxycodone Other allergy 07/02/2018 ACETAMINOPHEN, ADHESIVE, INDOMETHACIN, INDOMETHACIN SODIUM, OXYCODONE Admission Admission Data Admission Date: 06/30/2018 Admission Time: 0:26 Admit Source: Other Room #: D.2134 Lab Results Lab Result Date: 06/30/2018 Lab Result Time: 0:00 Biochemistry Name Units Result Min Max BUN mg/dl 21 --(----)-* 7 18 Creatinine mg/dl 1.1 --(--*-)-- 0.6 1.3 CBC Name Units Result Min Max Hemoglobin g/dl 13.5 --(*---)-- 13.5 17.5 Procedure Procedure Types Cath Procedure PCI Procedure Coronary Stent Coronary Stent Initial Procedure Description Procedure Date Procedure Date: 07/02/2018 Procedure Start Time: 12:18 Procedure End Time: 12:30 Procedure Staff Name Function Elyssa Vagras RT Scrub Neftali Marvin RN Nurse Ace Armas MD Performing Physician Fam Patino RT Monitor Procedure Data Cath Procedure Fluoroscopy Diagnostic fluoroscopy Total fluoroscopy Time: 3.3 time: 3.3 min min Diagnostic fluoroscopy Total fluoroscopy dose: 821 dose: 821 mGy mGy Contrast Material Contrast Material Type Amount (ml) Isovue 300 90 Entry Location Entry Primary Successful Side Size Upsize Upsize Entry Closure Nugent ccessful Closure Location (Fr) 1 (Fr) 2 (Fr) Remarks Device Remarks Radial Right 6 Fr Mechanical artery Short Compression Procedure Complications No complications Procedure Medications Medication Administration Route Dosage Oxygen etCO2 Nasal cannula 2 l/min Lidocaine 2% added to field 20 Heparin Flush Bag added to field 2 bags (1000units/500ml NS) 0.9% NaCl I.V. 100 ml/hr Versed I.V. 1 mg Fentanyl I.V. 50 mcg Versed I.V. 1 mg Fentanyl I.V. 50 mcg Heparin Bolus I.V. 4000 units Hemodynamics Rest HGB: 13.5 (g/dl) Heart Rate: 91 (bpm) Snapshots Pre Cath Intra NCS Post Cath Vital Signs Time Heart Resp SPO2 etCO2 NIBP (mmHg) Rhythm Pain Sedation Rate (ipm) (%) (mmHg) Status Level (bpm) 12:10:50 89 18 90 12.8 146/84(109) NSR 0 (11) 10(A) , No pain 12:14:55 91 17 93 9.8 160/94(114) NSR 0 (11) 10(A) , No pain 12:19:07 92 18 91 0 157/88(115) NSR 0 (11) 9(A) , No pain 12:23:19 93 19 92 0 144/81(115) NSR 0 (11) 9(A) , No pain 12:27:27 93 16 93 8.3 156/81(116) NSR 0 (11) 9(A) , No pain 12:31:41 93 15 93 24.1 149/79(106) NSR 0 (11) 10(A) , No pain Medications Time Medication Route Dose Verified Delivered Reason Notes Effectiveness by by 12:10:47 Oxygen etCO2 2 Ace Diazie used for Nasal l/min Pawel Marvin RN procedure cannula 12:10:52 Lidocaine 2% added 20ml Ace Lindsay used for to vial Pawel Marvin RN procedure field 12:10:59 Heparin Flush added 2 Ace Bello used for Bag to bags Pawel Armas MD procedure (1000units/500ml field NS) 12:11:08 0.9% NaCl I.V. 100 Ace Lindsay Per physician ml/hr Pawel Marvin RN 12:15:13 Versed I.V. 1 mg Ace Buffie for sedation Pawel Marvin RN 12:15:19 Fentanyl I.V. 50 Ace Buffie for sedation mcg Pawel Marvin RN 12:18:36 Versed I.V. 1 mg Ace Buffie for sedation aPwel Marvin RN 12:18:40 Fentanyl I.V. 50 Ace Buffie for sedation mcg Pawel Marvin RN 12:19:06 Heparin Bolus I.V. 4000 Ace Buffie for verif ied units Pawel Marvin RN anticoagulation with dr armas Procedure Log Time Note 10:54:28 Admit Source: Other 10:54:55 ACC Patient presents with Stable Angina CCS Anginal Class 2--Slight limitation of ordinary activity. 10:54:56 Diagnostic Cath status Elective 10:55:00 Fam Patino RT(R) sent for patient. Start room use. 11:47:34 Time tracking: Regular hours (M-F 7:00 - 5:00) 11:47:39 Plan of Care:Hemodynamics will remain stable., Cardiac rhythm will remain stable., Comfort level will be maintained., Respiratory function will remain adequate., Patient/ family verbilizes understanding of procedure., Procedure tolerated without complication., Recovers from procedure without complications.. 11:54:14 Patient received from Med II to CCL 2 Alert and oriented. Tansferred to table in Supine position. 11:54:16 Warm blankets applied, and jessica hugger turned on for patient comfort. 11:54:17 Correct patient and procedure confirmed by team. 11:54:20 Signed procedure consent form obtained from patient. 11:54:21 ECG and BP/O2 sat monitors applied to patient. 12:06:35 H&P Date Dictated: 06/30/2018 Within 30 days and on chart.. 12:06:36 Pre-procedure instructions explained to patient. 12:06:37 Pre-op teaching completed and patient verbalized understanding. 12:06:38 Family in patients room. 12:06:40 Patient NPO since Midnight. 12:07:25 Patient allergic to Other allergyACETAMINOPHEN, ADHESIVE, INDOMETHACIN, INDOMETHACIN SODIUM, OXYCODONE 12:07:27 Is the patient allergic to Iodine/contrast media? No. 12:07:30 Is patient on blood thinner?Yes 12:07:33 ACC The patient was administered the following blood thiners within the last 24 hours: ACCPlavix 12:07:54 Patient diabetic? Yes. 12:07:55 If diabetic: On Metformin? No 12:08:02 Previous problem with sedation/anesthesia? No ? 12:08:15 Snore? Yes 12:08:17 Sleep apnea? No 12:08:19 Deviated septum? No 12:08:21 Opens mouth fully? Yes 12:08:23 Sticks out tongue? Yes 12:08:26 Airway obstruction? No ? 12:08:29 Dentures? No ? 12:08:32 Modified Alex's test Ulnar < 7 seconds 12:08:40 Patient pain scale 0/10 ?. 12:09:09 IV started by Neftali Marvin RN inleft forearm with a 22 gauge IV catheter with 0.9% NaCl at KVO. 12:09:11 Lab results completed and on chart. 12:09:14 Right Radial & Right Groin area was prepped with chlora-prep and draped in sterile fashion 12:09:15 Alarms reviewed by R. N. 12:09:16 Sharps counted by scrub and verified by R.N. 12:09:43 Vital chart was started 12:09:45 Baseline sample Acquired. 12:09:48 Rhythm: sinus rhythm 12:09:49 Full Disclosure recording started 12:10:47 Oxygen 2 l/min etCO2 Nasal cannula was administered by Neftali Marvin RN; used for procedure; 12:10:52 Lidocaine 2% 20ml vial added to field was administered by Neftali Marvin RN; used for procedure; 12:10:59 Heparin Flush Bag (1000units/500ml NS) 2 bags added to field was administered by Ace Armas MD; used for procedure; 12:11:08 0.9% NaCl 100 ml/hr I.V. was administered by Neftali Marvin RN; Per physician; 12:11:15 Use device set CATH PACK 12:11:16 ACIST Syringe (08392) opened to sterile field. 12:11:17 ACIST Manifold (91360) opened to sterile field. 12:11:17 ACIST Hand Control (19115) opened to sterile field. 12:11:18 Bag Decanter (2001S) opened to sterile field. 12:11:18 Medline Cath Pack ([id number]) opened to sterile field. 12:11:19 DIAGNOSTIC WIRE .035 260cm J wire (115932) opened to sterile field. 12:11:39 SHEATH 6FR Slender ([id number]) opened to sterile field. 12:11:40 CHOICE PT Extra Support 182cm wire ([id number]) opened to sterile field. 12:11:40 INFLATOR Merit BasixCompak (JS9103) opened to sterile field. 12:14:50 Final Timeout: patient, procedure, and site verified with staff and physician. All members of the team are in agreement. 12:14:50 --------ALL STOP TIME OUT------ 12:14:54 Right Radial & Right Groin site verified by team. 12:14:57 Physical assessment completed. ASA score P 2 - A patient with mild systemic disease as per Ace Armas MD. 12:15:01 Sedation plan: IV Moderate Sedation Medication:Versed, Fentanyl 12:15:13 Versed 1 mg I.V. was administered by Neftali Marvin RN; for sedation; 12:15:19 Fentanyl 50 mcg I.V. was administered by Neftali Marvin RN; for sedation; 12:18:20 Procedure started. 12:18:31 Local anesthetic to right radial artery with Lidocaine 2% by Ace Armas MD.INITIAL ACCESS ONLY 12:18:36 Versed 1 mg I.V. was administered by Neftali Marvin RN; for sedation; 12:18:39 A 6 Fr Short sheath was inserted into the Right Radial artery 12:18:40 Fentanyl 50 mcg I.V. was administered by Neftali Marvin RN; for sedation; 12:18:50 GUIDE 6FR XBLAD 3.5 catheter ([id number]) opened to sterile field. 12:19:06 Heparin Bolus 4000 units I.V. was administered by Neftali Marvin RN; for anticoagulation; verified with dr armas 12:19:06 6 Fr XBLAD 3.5 guide catheter was inserted over the wire 12:21:35 CPTES wire advanced. 12:23:42 Place stent Inflation Number: 1 A SADAF RX 2.25 x 30 stent ([id number]) was prepped and advanced across the Mid CX. The stent was deployed at 10 LISA for 0:13 (min:sec). 12:24:02 Stent catheter was removed intact over wire. 12:25:20 Place stent Inflation Number: 1 A SADAF RX 3.5 x 15 stent ([id number]) was prepped and advanced across the Prox CX. The stent was deployed at 15 LISA for 0:12 (min:sec). 12::35 Inflation number: 2 The stent balloon was then re-inflated across the Prox CX to 17 LISA for 0:13 (min:sec). 12:26:03 Stent catheter was removed intact over wire. 12::04 Wire removed. 12::07 Guide catheter removed. 12:29:06 Sheath removed intact; hemostasis achieved with Mechanical Compression to the Right Radial artery. 12:29:14 TR BAND Large ([id number]) opened to sterile field. 12:29:16 Procedure ended.(Physican Out) 12::24 Fluoroscopy time 03.30 minutes. 12:29:29 Fluoroscopy dose: 821 mGy 12::29 Flurop Dose total: 821 12::43 Contrast amount:Isovue 300 90ml. 12:29:47 Sharps counted by scrub and verified by R.N. 12:30:03 TR band inflated with 12cc of air. 12:30:07 Post Procedure Pulses reassessed and unchanged 12:30:11 Post procedure rhythm: sinus rhythm 12::13 Post procedure instruction explained to patient.Patient verbalizes understanding. 12:30:14 Procedure and supply charges have been captured, reviewed, submitted and are correct. 12:30:36 Procedure Complication : No complications 12::39 See physician's report for complete and final results. 12::39 Vital chart was stopped 12::46 Report given to PCU. 12::51 Patient transfered to PCU with Bed. ::58 Full Disclosure recording stopped 12::58 Procedure ended. 12:31:00 End room use (Document Last) Intervention Summary Intervention Notes Time ActionType Lesion and Equipment Used Action# Pressure Duration Attributes 12:23:42 Place stent Mid CX SADAF RX 2.25 x 1 10 00:13 30 stent ([id number]) 12:25:20 Place stent Prox CX SADAF RX 3.5 x 1 15 00:12 15 stent ([id number]) 12:25:35 Reinflate Prox CX SADAF RX 3.5 x 2 17 00:13 stent 15 stent balloon ([id number]) Device Usage Item Name Manufacture Quantity Catalog Number Hospital Part Current M inimal Lot# / Charge Number Stock Stock Serial# Code ACIST Syringe Acist 1 66737 928185 209493 283797 2 0 (38166) Medical Systems Inc ACIST Hand Acist 1 07496 246467 582181 188320 5 Control Medical (11177) Systems Inc ACIST Manifold Acist 1 61035 694515 164408 619463 5 (84397) Medical Systems Inc Medline Cath Medline 1 [id number] 811932 29367 043231 5 Pack ([id number]) Bag Decanter Microtek 1 2001S 413060 00439 569326 5 () Medical Inc. DIAGNOSTIC St Niraj 1 377022 054631 023432 216355 3 0 WIRE .035 260cm J wire (255599) SHEATH 6FR Terumo 1 [id number] 901670 921046 596681 4 0 Slender ([id number]) INFLATOR Merit Merit 1 AB4101 560670 674914 588360 1 5 Infusion[facility] HospitalStitcher [facility] (OR8007) CHOICE PT Theresa 1 [id number] 008345 914728 199749 5 Extra Support Scientific 182cm wire ([id number]) GUIDE 6FR Cardinal 1 [id number] 712548 747733 747611 1 0 XBLAD 3.5 Health catheter ([id number]) SADAF RX 2.25 x Medtronic 1 [id number] 778523 1806620 010720 5 [id number] 30 stent ([id number]) SADAF RX 3.5 x Medtronic 1 [id number] 976102 8206161 611598 5 [id number] 15 stent ([id number]) TR BAND Large Terumo 1 [id number] 846388 161249 847752 4 0 ([id number]) Signature Audit [place] Stage Time Signature Unsigned Intra-Procedure 07/02/2018 Fam HENRY(Alon) 12:35:54 PM Signatures Monitor : Fam HENRY Signature : Date : Time : [address] [place] [address]
--- NOTE | ~2018-06-29 | OP ---
PATIENT NAME: ROMARIO CASTRO JR MEDICAL RECORD: [id number] :43 LOCATION:D.M2 D.2134 ADMISSION DATE:06/30/18 SURGEON: BRUNO CHRISTIANSON MD DATE OF OPERATION: 07/02/2018 PROCEDURES: 1. PTCA and stent, left circumflex. 2. Selective coronary angiography. INDICATION: Angina and coronary disease. PROCEDURE IN DETAIL: After informed consent was obtained and after detailed description of risks and benefits as well as alternative therapies, the patient elected to proceed with angiogram and angioplasty. The right radial area was prepped and draped in normal sterile fashion. Right radial artery was cannulated via modified Seldinger technique with placement of 6-Turkmen sheath. All catheters were exchanged through the sheath. FINDINGS: The left circumflex has 80 plus percent stenosis proximally and in mid vessel. This was addressed with 2.25 x 30 and 3.5 x 15 both Ora stents. Result was 0% residual stenosis. OVERALL IMPRESSION: Successful PTCA and stent of left circumflex, going from 80 plus percent initial stenosis to 0% residual. TRANSINT:[id number] Voice Confirmation ID: [id number] DOCUMENT ID: [id number] BRUNO CHRISTIANSON MD at 1914 CC: [id number] DICTATION DATE: 07/02/18 1230 SPECIAL EDUCATION ASSISTANT: 07/02/18 1801 DIS IN 07/03/18 [facility] [address] [place] [address]
[~2018-06-29 22:08] MED LIST changes: +ACTOS15 MG PO; +LIPITOR20 MG PO; +MOBIC7.5 MG PO; +NEURONTIN 300300 MG PO; +NORVASC5 MG PO; +NOVOLIN 70/30 110 ML SC; +NOVOLOG MIX 70/10 ML SQ
[2018-06-29] MEDS ORDERED: KLONOPIN1 MG PO (22:16)
[2018-06-29] MEDS ORDERED: CATAPRES0.1 MG PO (22:18)
[2018-06-29 22:45] VITALS: BP 149/82
[2018-06-29 23:05] LABS: CKMB 8.1 U/L (0.0-3.6); CREATINE KINASE 448 UL (21-232); PRO BNP 1802 pg/mL (0-125)
[2018-06-29 23:07] LABS: TROPONIN-I 2.095 ng/mL (0.000-0.060)
[2018-06-30] VITALS (8 sets, daily range): BP systolic 127–145; BP diastolic 67–79; BMI 37.2
[2018-06-30 09:44] LABS: BASOPHILS 0 % (0-2); EOSINOPHILS 0 % (0-7); HEMATOCRIT 41.2 % (42.0-54.0); HEMOGLOBIN 13.5 g/dL (13.5-17.5); IMMATURE GRANULOCYTES 0.3 % (0-5); MCH 28.7 pg (26.0-34.0); MCHC 32.8 g/dL (31.0-37.0); MCV 87.5 fL (80.0-100.0); MEAN PLATELET VOLUME 11.1 fL (7.4-10.4); MONOCYTES 2.4 % (2-11); NEUTROPHILS 89.3 % (40-80); PLATELET COUNT 202 10x3/uL (130-400); RBC 4.71 10x6/uL (4.20-6.10); RDW 13.9 % (11.5-14.5); WBC 9.3 10x3/uL (4.8-10.8)
[2018-06-30 09:49] LABS: ANION GAP 13.3 mmol/L (8-16); CALCIUM 9.1 mg/dL (8.5-10.1); CARBON DIOXIDE 31.1 mmol/L (21.0-32.0); CREATININE - SERUM 1.1 mg/dL (0.6-1.3); POTASSIUM - SERUM 4.4 mmol/L (3.5-5.1)
[2018-07-01 00:51] VITALS: BP 122/53
[2018-07-01 04:57] VITALS: BP 130/68
[2018-07-01 05:57] LABS: BASOPHILS 0.3 % (0-2); EOSINOPHILS 0.5 % (0-7); HEMATOCRIT 39.1 % (42.0-54.0); HEMOGLOBIN 12.4 g/dL (13.5-17.5); IMMATURE GRANULOCYTES 0.2 % (0-5); LYMPHOCYTES 19.4 % (15-50); MCH 28.2 pg (26.0-34.0); MCHC 31.7 g/dL (31.0-37.0); MCV 89.1 fL (80.0-100.0); MEAN PLATELET VOLUME 11.2 fL (7.4-10.4); MONOCYTES 10.5 % (2-11); NEUTROPHILS 69.1 % (40-80); PLATELET COUNT 209 10x3/uL (130-400); RBC 4.39 10x6/uL (4.20-6.10); RDW 14.2 % (11.5-14.5); WBC 10.7 10x3/uL (4.8-10.8)
[2018-07-01 06:30] LABS: ALBUMIN 2.9 g/dL (3.4-5.0); ALKALINE PHOSPHATASE 64 U/L (46-116); ALT (SGPT) 28 U/L (10-68); BILIRUBIN - TOTAL 0.35 mg/dL (0.2-1.3); CALC OSMOLALITY 292 mosm/kg (275-300); CALCIUM 8.8 mg/dL (8.5-10.1); CARBON DIOXIDE 34.2 mmol/L (21.0-32.0); CHLORIDE - SERUM 105 mmol/L (98-107); CKMB 6.9 U/L (0.0-3.6); CREATINE KINASE 275 UL (21-232); GLUCOSE 93 mg/dL (74-106); POTASSIUM - SERUM 3.7 mmol/L (3.5-5.1); PRO BNP 1633 pg/mL (0-125); PROTEIN - SERUM 7.1 g/dL (6.4-8.2); SODIUM 144 mmol/L (136-145); UREA NITROGEN 28 mg/dL (7-18); eGFR NON AFRICAN AMERICAN 78 mL/min (90-120)
[2018-07-01 06:31] LABS: TROPONIN-I 7.537 ng/mL (0.000-0.060)
[2018-07-01 07:49] VITALS: BP 133/69
[2018-07-01 07:53] LABS: MAGNESIUM - SERUM 1.8 mg/dL (1.8-2.4); PHOSPHOROUS 3.8 mg/dL (2.5-4.9)
[2018-07-01 11:21] VITALS: BP 120/67
[2018-07-01 12:13] VITALS: Ht 188 cm; Wt 131.8 kg
[2018-07-01 20:00] VITALS: BP 127/70
[2018-07-02 01:10] VITALS: BP 108/60
[2018-07-02 06:06] VITALS: BP 110/60
[2018-07-02 07:47] LABS: MAGNESIUM - SERUM 1.6 mg/dL (1.8-2.4); PHOSPHOROUS 4.3 mg/dL (2.5-4.9)
[2018-07-02 08:24] VITALS: BP 150/76
[2018-07-02 11:27] VITALS: BP 108/54
[2018-07-02 20:00] VITALS: BP 117/54
[2018-07-03] VITALS: BP 120/62
[2018-07-03 05:41] LABS: BASOPHILS 0.3 % (0-2); EOSINOPHILS 3.9 % (0-7); HEMATOCRIT 39.7 % (42.0-54.0); HEMOGLOBIN 12.4 g/dL (13.5-17.5); IMMATURE GRANULOCYTES 0.3 % (0-5); LYMPHOCYTES 23.3 % (15-50); MCH 27.9 pg (26.0-34.0); MCHC 31.2 g/dL (31.0-37.0); MCV 89.2 fL (80.0-100.0); MEAN PLATELET VOLUME 10.9 fL (7.4-10.4); MONOCYTES 10.8 % (2-11); NEUTROPHILS 61.4 % (40-80); PLATELET COUNT 192 10x3/uL (130-400); RBC 4.45 10x6/uL (4.20-6.10); RDW 13.8 % (11.5-14.5); WBC 6.7 10x3/uL (4.8-10.8)
[2018-07-03 05:57] VITALS: BP 135/71
[2018-07-03 05:57] LABS: CALC OSMOLALITY 287 mosm/kg (275-300); CALCIUM 8.6 mg/dL (8.5-10.1); CHLORIDE - SERUM 100 mmol/L (98-107); CREATININE - SERUM 0.9 mg/dL (0.6-1.3); MAGNESIUM - SERUM 1.7 mg/dL (1.8-2.4); PHOSPHOROUS 3.9 mg/dL (2.5-4.9); POTASSIUM - SERUM 3.5 mmol/L (3.5-5.1); SODIUM 142 mmol/L (136-145); UREA NITROGEN 19 mg/dL (7-18); eGFR NON AFRICAN AMERICAN 88 mL/min (90-120)
[2018-07-03 06:18] LABS: GLUCOSE 151 mg/dL (74-106)
[2018-07-03 08:22] VITALS: BP 135/69
[2018-07-03 09:54] VITALS: BP 135/69
[2018-07-03 10:03] VITALS: BP 125/69; BP 135/69
[2018-07-03 11:42] VITALS: BP 103/58
[2018-07-03] MEDS ORDERED: LEVAQUIN750 MG PO (13:26)
[2018-07-03] MEDS ORDERED: PLAVIX75 MG PO (13:26)
[2018-07-03] MEDS ORDERED: NYSTATIN1 PWD TOPICAL (13:27)
[2018-07-03] MEDS ORDERED: GLUCOPHAGE500 MG PO (13:27)
[2018-07-03] MEDS ORDERED: ZOCOR20 MG PO (13:30)
== END 2018-07-03 15:01 | disposition home or self-care (01) | DRG 246 ==
LOC: D.ER 22:08 → D.M2 06-30 00:26 → D.SDCHOLD 06-30 13:15 → D.M2 06-30 13:18
PROVIDERS: Family Medicine; Internal Medicine Interventional Cardiology; Internal Medicine Nephrology
PROC: 4A023N7 Measurement of Cardiac Sampling and Pressure, Left Heart, Percutaneous Approach (ICD-10-PCS; 2018-06-30)
PROC: B2111ZZ Fluoroscopy of Multiple Coronary Arteries using Low Osmolar Contrast (ICD-10-PCS; 2018-06-30)
PROC: B2151ZZ Fluoroscopy of Left Heart using Low Osmolar Contrast (ICD-10-PCS; 2018-06-30)
PROC: 027035Z Dilation of Coronary Artery, One Artery with Two Drug-eluting Intraluminal Devices, Percutaneous Approach (ICD-10-PCS; principal; 2018-06-30 11:00)
PROC: 027034Z Dilation of Coronary Artery, One Artery with Drug-eluting Intraluminal Device, Percutaneous Approach (ICD-10-PCS; 2018-07-01)
PROC: 027035Z Dilation of Coronary Artery, One Artery with Two Drug-eluting Intraluminal Devices, Percutaneous Approach (ICD-10-PCS; 2018-07-02)
DX: I21.4 Non-ST elevation (NSTEMI) myocardial infarction (principal); J18.9 Pneumonia, unspecified organism; J96.02 Acute respiratory failure with hypercapnia; J96.01 Acute respiratory failure with hypoxia; N17.9 Acute kidney failure, unspecified; I25.119 Atherosclerotic heart disease of native coronary artery with unspecified angina pectoris; I10 Essential (primary) hypertension; E78.5 Hyperlipidemia, unspecified; E10.9 Type 1 diabetes mellitus without complications; Z89.612 Acquired absence of left leg above knee; E03.9 Hypothyroidism, unspecified

== ENCOUNTER 2019-03-10 22:01 | Inpatient (IN) | payer MEDICARE, BC ==
[~2019-03-10] VITALS: Ht 188 cm; Wt 137.8 kg
[~2019-03-10 22:01] MED LIST changes: +CATAPRES0.1 MG PO; +KLONOPIN1 MG PO; +LEVAQUIN750 MG PO; +NYSTATIN1 PWD TOPICAL; +PLAVIX75 MG PO; +ZOCOR20 MG PO
[2019-03-11] VITALS (39 sets, daily range): BP systolic 110–178; BP diastolic 51–98; BMI 37.3; BMI 37.2
[2019-03-11 02:16] LABS: HEMATOCRIT 19.5 % (42.0-54.0); HEMOGLOBIN 6.2 g/dL (13.5-17.5)
--- NOTE | 2019-03-11 02:18 | NUR ---
PAGED VOISE REGARDING CRITICAL H&H
--- NOTE | 2019-03-11 02:22 | NUR ---
REC'D CALLBACK FROM VOISE, NEW ORDERS TO GIVE 2 UNITS PRBC NOW, IF HGB IS NOT ABOVE 7 AFTER 2 UNITS, GIVE 2 MORE UNITS.
--- NOTE | 2019-03-11 03:15 | NUR ---
1ST UNIT OF PRBCS STARTED
[2019-03-11 08:39] LABS: ALBUMIN 3.1 g/dL (3.4-5.0); ALKALINE PHOSPHATASE 50 U/L (46-116); ALT (SGPT) 19 U/L (10-68); BILIRUBIN - TOTAL 0.36 mg/dL (0.2-1.3); CALC OSMOLALITY 295 mosm/kg (275-300); CALCIUM 8.6 mg/dL (8.5-10.1); CARBON DIOXIDE 28.4 mmol/L (21.0-32.0); CHLORIDE - SERUM 106 mmol/L (98-107); GLUCOSE 135 mg/dL (74-106); MAGNESIUM - SERUM 1.7 mg/dL (1.8-2.4); PHOSPHOROUS 3.7 mg/dL (2.5-4.9); POTASSIUM - SERUM 4.3 mmol/L (3.5-5.1); PROTEIN - SERUM 5.7 g/dL (6.4-8.2); SODIUM 143 mmol/L (136-145); UREA NITROGEN 39 mg/dL (7-18); eGFR NON AFRICAN AMERICAN 78 mL/min (90-120)
[2019-03-11 08:44] LABS: APTT 23.5 SECONDS (22.8-39.4); INR 1.07 (0.85-1.17); PROTIME 13.4 SECONDS (11.6-15.0)
[2019-03-11 09:24] LABS: BASOPHILS 0.5 % (0-2); EOSINOPHILS 2.4 % (0-7); IMMATURE GRANULOCYTES 0.3 % (0-5); MCH 26.5 pg (26.0-34.0); MCHC 32.1 g/dL (31.0-37.0); MCV 82.5 fL (80.0-100.0); MEAN PLATELET VOLUME 10.3 fL (7.4-10.4); MONOCYTES 9.6 % (2-11); NEUTROPHILS 59.2 % (40-80); PLATELET COUNT 171 10x3/uL (130-400); RBC 3.02 10x6/uL (4.20-6.10); RDW 15.8 % (11.5-14.5); WBC 6.2 10x3/uL (4.8-10.8)
[2019-03-11 09:25] LABS: HEMATOCRIT 24.9 % (42.0-54.0)
[2019-03-11 10:57] LABS: HEMATOCRIT 24.2 % (42.0-54.0); HEMOGLOBIN 7.9 g/dL (13.5-17.5)
[2019-03-11 12:07] LABS: APPEARANCE CLEAR (CLEAR); BACTERIA FEW /hpf (NONE SEEN); BILIRUBIN NEGATIVE (NEGATIVE); COLOR YELLOW (YELLOW); EPITHELIAL CELLS 0-5 /hpf (0-5); GLUCOSE 250 mg/dL (NEGATIVE); KETONE NEGATIVE (NEGATIVE); MUCUS <1+ /lpf (NONE SEEN); NITRITE NEGATIVE (NEGATIVE); PROTEIN NEGATIVE (NEGATIVE); SPECIFIC GRAVITY 1.015 (1.005-1.020); UROBILINOGEN NORMAL (NORMAL); WHITE CELLS - URINE 0-5 /hpf (0-5)
[2019-03-11 13:03] LABS: % SATURATION 7 % (15-55); IRON 27 ug/dl (35-150); TOTAL IRON BIND CAPACITY 342 ug/dl (260-445); UNSAT IRON BIND CAPACITY 315 ug/dl (150-375)
[2019-03-11 13:39] LABS: HEMATOCRIT 22.6 % (42.0-54.0)
[2019-03-11 14:01] LABS: HEMOGLOBIN 7.4 g/dL (13.5-17.5)
--- NOTE | 2019-03-11 14:09 | NUR ---
0902-OMLVMUWJ-RGUB EGD IN PROGRESS-GI TEAM AT BEDSIDE-PRBC INFUSING-R AC 0730-PRBC INFUSED- 744-COMPLETED EGD WITH NURSE RECOEVERY PERIOD R AC LOCKED 829-ASSISTED WITH BREAKFEST TRAY 1000-HGB/HCT DRAWN 1200-ASSISTED WITH LUNCH TRAY 1330-HGB/HCT DRAWN DR LINTON AT BEDSIDE-NO ACTIVE STOOLS
--- NOTE | 2019-03-11 16:10 | MORECARE ---
CASE MANAGEMENT DISCHARGE SUMMARY PATIENT: ROMARIO CASTRO JR UNIT: [id number] ADM DATE: 03/10/19 AGE: 73 : 44 SEX: M ROOM/BED: D.2313 AUTHOR: CINDY NEAL PHYSICIAN: REFERRING PHYSICIAN: SOHAN LINTON MD DATE OF SERVICE: 03/11/19 Discharge Plan Patient Name: ROMARIO CASTRO Facility: [facility]:[place] : 1945 Planned Disposition: Home Anticipated Discharge Date: Discharge Date: Expected LOS: Initial Reviewer: [email or web address] Initial Review Date: 03/11/2019 Generated: 03/11/19 5:09 pm Patient Name: ROMARIO CASTRO Page 01668 at 1610 All edits/amendments must be made on the electronic document DICTATION DATE: 03/11/19 1609 FUR COMBER: MARIA DOLORES 03/11/19 1609 RPT#: [id number] DC DATE: STATUS: ADM IN [facility] [address] [place] [address] END OF REPORT
--- NOTE | 2019-03-11 16:18 | MORECARE ---
CASE MANAGEMENT DISCHARGE SUMMARY PATIENT: ROMARIO CASTRO JR UNIT: [id number] ADM DATE: 03/10/19 AGE: 73 : 44 SEX: M ROOM/BED: D.2313 AUTHOR: CINDY NEAL PHYSICIAN: REFERRING PHYSICIAN: SOHAN LINTON MD DATE OF SERVICE: 03/11/19 Discharge Plan Patient Name: ROMARIO CASTRO [facility] : 1945 Planned Disposition: Home Anticipated Discharge Date: Discharge Date: Expected LOS: Initial Reviewer: [email or web address] Initial Review Date: 03/11/2019 Generated: 03/11/19 5:18 pm DCPIA - Discharge Planning Initial Assessment Updated by [email or web address]: Amelia Martines on 03/11/19 4:16 pm * Is the patient Alert and Oriented? Yes * How many steps to enter\exit or inside your home? RAMP * PCP RICK CASTELAN * Pharmacy [facility] IN [place] * Preadmission Environment Home with Family * ADLs Independent * Equipment Wheelchair * List name and contact numbers for known caregivers / representatives who currently or will assist patient after discharge: MARTA CASTRO - - [phone] * Verbal permission to speak to the caregivers and representatives has been obtained from the patient. Yes * Community resources currently utilized None * Additional services required to return to the preadmission environment? No * Can the patient safely return to the preadmission environment? Yes * Has this patient been hospitalized within the prior 30 days at any hospital? No Last DP export: 03/11/19 3:09 pm Patient Name: ROMARIO CASTRO Page 10505 at 1618 All edits/amendments must be made on the electronic document DICTATION DATE: 03/11/191616 SENIOR BUSINESS DEVELOPMENT MANAGER: MARIA DOLORES 03/11/191616 RPT#: [id number] DC DATE: STATUS: ADM IN [facility] [address] [place] [address] END OF REPORT
--- NOTE | 2019-03-11 16:32 | MORECARE ---
CASE MANAGEMENT DISCHARGE SUMMARY PATIENT: ROMARIO CASTRO UNIT: [id number] ADM DATE: 03/10/19 AGE: 73 : 44 SEX: M ROOM/BED: D.2313 AUTHOR: VAL,DOC PHYSICIAN: REFERRING PHYSICIAN: SOHAN LINTON MD DATE OF SERVICE: 03/11/19 Discharge Plan Patient Name: ROMARIO CASTRO Facility: [facility]:[place] : 1945 Planned Disposition: Home Anticipated Discharge Date: Discharge Date: Expected LOS: Initial Reviewer: [email or web address] Initial Review Date: 03/11/2019 Generated: 03/11/19 5:32 pm Comments DCP- Discharge Planning Updated by [email or web address]: Amelia Martines on 03/11/19 3:[address] Patient Name: ROMARIO CASTRO Admission Status: ER Accout number: [id number] Admission Date: 03-10-2019 : 1945 Admission Diagnosis: Attending: SOHAN LINTON Current LOS: 1 Anticipated DC Date: Planned Disposition: Home Primary Insurance: MEDICARE A & B Discharge Planning Comments: CM met with patient at bedside after explaining CM role and obtaining verbal consent. Patient lives at home with his Marta and plans to return there upon discharge. Patient feels this would be a safe discharge. CM discussed availability / needs of home health and medical equipment. Patient denies any discharge needs at this time. Patient states he will have his drive him home upon discharge. CM will continue to follow and assist as needed with discharge planning / needs. Chief Of Police: Amelia Martines DCPIA - Discharge Planning Initial Assessment Updated by [email or web address]: Amelia Martines on 03/11/19 4:16 pm * Is the patient Alert and Oriented? Yes * How many steps to enter\exit or inside your home? RAMP * PCP RICK CASTELAN * Pharmacy [facility] IN [place] * Preadmission Environment Home with Family * ADLs Independent * Equipment Wheelchair * List name and contact numbers for known caregivers / representatives who currently or will assist patient after discharge: MARTA CASTRO - - [phone] * Verbal permission to speak to the caregivers and representatives has been obtained from the patient. Yes * Community resources currently utilized None * Additional services required to return to the preadmission environment? No * Can the patient safely return to the preadmission environment? Yes * Has this patient been hospitalized within the prior 30 days at any hospital? No Last DP export: 03/11/19 3:18 pm Patient Name: ROMARIO CASTRO Page 61990 at 1632 All edits/amendments must be made on the electronic document DICTATION DATE: 03/11/19 1631 DIGITAL LEARNING PLATFORMS MANAGER: DM 03/11/19 1631 RPT#: [id number] DC DATE: STATUS: ADM IN [facility] [address] [place] [address] END OF REPORT
--- NOTE | 2019-03-11 19:00 | NUR ---
REPORT RECEIVED, CARE ASSUMED. PT IS RESTING IN BED WITH EYES CLOSED AT THIS TIME. INITIAL ASSESSMENT COMPLETED, SEE FLOWSHEET FOR DETAILS. PT DENIES NEEDS AT THIS TIME. NO SIGNS OF ACUTE DISTRESS NOTED. WILL CONTINUE TO MONITOR.
--- NOTE | 2019-03-11 21:00 | NUR ---
PT IS RESTING IN BED WITH EYES CLOSED. NO NEEDS VOICED AT THIS TIME. NO SIGNS OF ACUTE DISTRESS. WILL CONTINUE TO MONITOR.
[2019-03-11 21:48] LABS: HEMATOCRIT 22.9 % (42.0-54.0)
[2019-03-11 22:04] LABS: HEMOGLOBIN 7.4 g/dL (13.5-17.5)
--- NOTE | 2019-03-11 23:00 | NUR ---
REASSESSMENT COMPLETED, SEE FLOWSHEET FOR DETAILS. PT IS RESTING IN BED WIH EYES CLOSED AT THIS TIME. NO SIGNS OF ACUTE DISTRESS NOTED. WILL CONTINUE TO MONITOR.
[2019-03-12] VITALS (22 sets, daily range): BP systolic 118–173; BP diastolic 56–95
--- NOTE | 2019-03-12 01:00 | NUR ---
PT IS RESTING IN BED WITH EYES CLOSED AT THIS TIME. PT DENIES NEEDS AT THIS TIME. NO SIGNS OF ACUTE DISTRESS NOTED. WILL CONTINUE TO MONITOR.
[2019-03-12 01:30] LABS: HEMOGLOBIN 7.5 g/dL (13.5-17.5)
--- NOTE | 2019-03-12 03:00 | NUR ---
REASSESSMENT COMPLETED, SEE FLOWSHEET FOR DETAILS. PT IS LAYING IN BED WITH EYES CLOSED AT THIS TIME. PT DENIES NEEDS. NO SIGNS OF ACUTE DISTRESS. WILL CONTINUE TO MONITOR. CLOSELY.
[2019-03-12 04:50] LABS: BASOPHILS 0.4 % (0-2); HEMATOCRIT 23.9 % (42.0-54.0); HEMOGLOBIN 7.8 g/dL (13.5-17.5); IMMATURE GRANULOCYTES 0.4 % (0-5); LYMPHOCYTES 26.7 % (15-50); MCHC 32.6 g/dL (31.0-37.0); MCV 82.7 fL (80.0-100.0); MEAN PLATELET VOLUME 9.7 fL (7.4-10.4); MONOCYTES 11.6 % (2-11); NEUTROPHILS 56.9 % (40-80); PLATELET COUNT 165 10x3/uL (130-400); RBC 2.89 10x6/uL (4.20-6.10); RDW 15.9 % (11.5-14.5); WBC 5.7 10x3/uL (4.8-10.8)
[2019-03-12 05:01] LABS: CALCIUM 7.9 mg/dL (8.5-10.1); CARBON DIOXIDE 28.3 mmol/L (21.0-32.0); CHLORIDE - SERUM 105 mmol/L (98-107); CREATININE - SERUM 0.9 mg/dL (0.6-1.3); MAGNESIUM - SERUM 1.7 mg/dL (1.8-2.4); PHOSPHOROUS 3.3 mg/dL (2.5-4.9); POTASSIUM - SERUM 3.9 mmol/L (3.5-5.1); SODIUM 140 mmol/L (136-145); eGFR NON AFRICAN AMERICAN 88 mL/min (90-120)
[2019-03-12 05:09] LABS: CALC OSMOLALITY 289 mosm/kg (275-300); GLUCOSE 204 mg/dL (74-106); UREA NITROGEN 26 mg/dL (7-18)
--- NOTE | 2019-03-12 07:30 | NUR ---
REPORT RECEIVED. PT IS ALERT AND ORIENTED. HE HAS A LEFT AC AND RIGHT AC. HE HAS NS INFUSING INTO THE LEFT AC. PT IS TO HAVE A COLONOSCOPY TOMORROW AND WILL DO HIS PREP THIS AFTERNOON. ENCOURAGED HIM TO TAKE IN PLENTY OF FLUID DURING THE DAY. PT STATED HE WOULD BE ABLE TO USE A BSC WHEN HE STARTED HIS PREP LATER WITH ASSISTANCE TO PIVOT ONTO THE BSC. PT HAS A HISTORY OF LEFT AKA. PT HAD LOW MG OF 1.7. PT HAD 1ST DOSE OF MAGNESIUM AND WILL RECEIVE A 2ND DOSE WITH HIS MORNING MEDICATIONS. PT HAS NO OTHER NEEDS AT THIS TIME. WILL CONTINUE TO MONITOR.
--- NOTE | 2019-03-12 09:30 | NUR ---
MEDICATIONS GIVEN. BSC TAKEN INTO PT'S ROOM FOR LATER USE. DISCUSSED PLAN WITH PT. VSS. NO OTHER QUESTIONS OR NEEDS AT THIS TIME. WILL CONTINUE TO MONITOR.
--- NOTE | 2019-03-12 11:30 | NUR ---
PT RESTING QUIETLY WITH VSS. NO COMPLAINTS OR NEEDS AT THIS TIME.
[2019-03-12 13:38] LABS: HEMATOCRIT 24.2 % (42.0-54.0); HEMOGLOBIN 7.8 g/dL (13.5-17.5)
--- NOTE | 2019-03-12 13:45 | NUR ---
PT IS RESTING QUIETLY. WATCHING TV. VSS.
--- NOTE | 2019-03-12 15:30 | NUR ---
PT IS RESTING QUIETLY WITH EVEN, UNLABORED RESPIRATIONS. REASSESSMENT DONE. VSS. NO NEEDS AT THIS TIME. WILL CONTINUE TO MONITOR.
--- NOTE | 2019-03-12 17:10 | NUR ---
PT HAS CLEAR LIQUID DINNER AND IS STARTING HIS GO LYTELY PREP. AT BEDSIDE. BSC IN ROOM. VSS. NO OTHER NEEDS AT THIS TIME.
--- NOTE | 2019-03-12 19:00 | NUR ---
REPORT RECEIVED, CARE ASSUMED. PT IS SITTING UP ON BSC AT THIS TIME. PT STATES THAT HE FINISHED HIS BOWEL PREP COMPLETELY AT THIS TIME. INITIAL ASSESSMENT COMPLETED, SEE FLOWSHEET FOR DETAILS. PT DENIES NEEDS AT THIS TIME. WILL CONTINUE TO MONITOR.
--- NOTE | 2019-03-12 21:00 | NUR ---
PT IS IN BED WITH EYES OPEN WATCHING TV AT THIS TIME. PT'S IS AT BEDSIDE. NO ACUTE CHANGES NOTED AT THIS TIME. NO SIGNS OF ACUTE DISTRESS. WILL CONTINUE TO MONITOR.
[2019-03-12 21:55] LABS: HEMATOCRIT 26.1 % (42.0-54.0); HEMOGLOBIN 8.3 g/dL (13.5-17.5)
--- NOTE | 2019-03-12 23:00 | NUR ---
REASSESSMENT COMPLETED, SEE FLOWSHEET FOR DETAILS. PT IS IN BED WITH EYES CLOSED AT THIS TIME. NO NEEDS VOICED. NO SIGNS OF ACUTE DISTRESS. WILL CONTINUE TO MONITOR.
[2019-03-13] VITALS (22 sets, daily range): BP systolic 118–171; BP diastolic 58–96
--- NOTE | 2019-03-13 01:00 | NUR ---
PT IS IN BED WITH EYES CLOSED AT THIS TIME. NO NEEDS VOICED. NO SIGNS OF ACUTE DISTRESS. WILL CONTINUE TO MONITOR.
--- NOTE | 2019-03-13 05:00 | NUR ---
PT IS IN BED RESTING WITH EYES CLOSED AT THIS TIME. PT DENIES NEEDS. NO SIGNS OF ACUTE DISTRESS. WILL CONTINUE TO MONITOR.
[2019-03-13 05:05] LABS: BASOPHILS 0.4 % (0-2); IMMATURE GRANULOCYTES 0.2 % (0-5); LYMPHOCYTES 27.3 % (15-50); MCH 26.7 pg (26.0-34.0); MCHC 32.2 g/dL (31.0-37.0); MEAN PLATELET VOLUME 9.9 fL (7.4-10.4); NEUTROPHILS 57.1 % (40-80); PLATELET COUNT 171 10x3/uL (130-400); RBC 2.77 10x6/uL (4.20-6.10); RDW 15.7 % (11.5-14.5); WBC 5.7 10x3/uL (4.8-10.8)
[2019-03-13 05:11] LABS: HEMOGLOBIN 7.4 g/dL (13.5-17.5)
[2019-03-13 05:34] LABS: CALCIUM 7.5 mg/dL (8.5-10.1); CARBON DIOXIDE 31.5 mmol/L (21.0-32.0); CHLORIDE - SERUM 105 mmol/L (98-107); CREATININE - SERUM 0.7 mg/dL (0.6-1.3); GLUCOSE 166 mg/dL (74-106); MAGNESIUM - SERUM 1.7 mg/dL (1.8-2.4); PHOSPHOROUS 2.8 mg/dL (2.5-4.9); SODIUM 143 mmol/L (136-145); eGFR NON AFRICAN AMERICAN > 90 mL/min (90-120)
[2019-03-13 05:42] LABS: CALC OSMOLALITY 288 mosm/kg (275-300); POTASSIUM - SERUM 3.3 mmol/L (3.5-5.1); UREA NITROGEN 13 mg/dL (7-18)
--- NOTE | 2019-03-13 07:20 | NUR ---
REPORT RECEIVED. PT FINISHED BOWEL PREP LAST NIGHT. HE IS SCHEDULED FOR A COLONOSCOPY THIS MORNING. CONSENTS ARE SIGNED. HE HAS A HGB OF 7.4. OIL FIELD TECHNICIAN RN, JENNIFER, SPOKE WITH INDY BASS, FOR ATTENDING DOCTOR (DR LINTON) WHO STATED THEY WON'T TREAT UNTIL IT GETS UNDER 7. WILL DISCUSS WITH DR HADLEY WHEN HE GETS TO UNIT. TREATING LOW MAGNESIUM AND POTASSIUM THIS MORNING. IV IN LEFT AC. PT IS CURRENTLY NPO. VSS. WILL CONTINUE TO MONITOR.
--- NOTE | 2019-03-13 09:15 | NUR ---
PT PREOPPED. CHG BATH GIVEN. LINENS CHANGED. 2ND GRAM OF MAGNESIUM HANGING. VSS. WILL CONTINUE TO MONITOR.
--- NOTE | 2019-03-13 10:15 | NUR ---
DR HADLEY IN DOING COLONOSCOPY ON PT.
--- NOTE | 2019-03-13 12:00 | NUR ---
PT EATING DIABETIC TRAY. UPDATED PT'S . NO QUESTIONS OR COMPLAINTS AT THIS TIME. VSS. WILL CONTINUE TO MONITOR.
--- NOTE | 2019-03-13 12:17 | NUR ---
NUTRITION F/U PT CURRENTLY NPO FOR COLONOSCOPY. WILL PROVIDE DIET WHEN RESUMED, MONITOR PO INTAKE, PT PROGRESS. RD FOLLOWING
[2019-03-13 12:42] LABS: HEMATOCRIT 24.8 % (42.0-54.0)
--- NOTE | 2019-03-13 14:22 | NUR ---
UNIT OF BLOOD INITIATED. TEMP 98.3 ORAL, HR 106, BP 118/76. PT EDUCATED ON S/S TO REPORT. WILL MONITOR.
--- NOTE | 2019-03-13 16:30 | NUR ---
BLOOD TRANSFUSION FINISHED. VSS. PT TOLERATED WELL. WAITING ON DINNER TRAY TO BE DELIVERED. WILL EAT HERE THEN TRANSFER TO FLOOR.
--- NOTE | 2019-03-13 17:45 | NUR ---
TRYING TO CALL REPORT TO [facility]. PHONE HAS RANG WITH NO ONE ANSWERING FOR ABOUT 5 MINUTES. WILL CONTINUE TO TRY.
--- NOTE | 2019-03-13 18:04 | NUR ---
REPORT GIVEN TO [place] ON MED 3. PT GOING TO 1206.
[2019-03-13 20:45] LABS: HEMATOCRIT 25.4 % (42.0-54.0); HEMOGLOBIN 8.3 g/dL (13.5-17.5)
[2019-03-14] VITALS: BP 138/57
--- NOTE | 2019-03-14 01:52 | NUR ---
Assessed patient at beginning of shift. Patient is alert and oriented. He has a left leg above the knee amputation, but transfers well without assistance. Patient has IV located in right AC, patent and infusing fluids per orders.
[2019-03-14 04:00] VITALS: BP 117/51
[2019-03-14 07:03] LABS: BASOPHILS 0.3 % (0-2); EOSINOPHILS 2.7 % (0-7); HEMATOCRIT 25.6 % (42.0-54.0); HEMOGLOBIN 8.1 g/dL (13.5-17.5); IMMATURE GRANULOCYTES 0.3 % (0-5); LYMPHOCYTES 18.4 % (15-50); MCH 26.6 pg (26.0-34.0); MCHC 31.6 g/dL (31.0-37.0); MCV 84.2 fL (80.0-100.0); MONOCYTES 10.6 % (2-11); NEUTROPHILS 67.7 % (40-80); PLATELET COUNT 173 10x3/uL (130-400); RBC 3.04 10x6/uL (4.20-6.10); RDW 15.2 % (11.5-14.5); WBC 6.7 10x3/uL (4.8-10.8)
[2019-03-14 07:16] LABS: CALCIUM 7.4 mg/dL (8.5-10.1); CARBON DIOXIDE 27.9 mmol/L (21.0-32.0); CHLORIDE - SERUM 106 mmol/L (98-107); CREATININE - SERUM 0.8 mg/dL (0.6-1.3); GLUCOSE 195 mg/dL (74-106); PHOSPHOROUS 2.5 mg/dL (2.5-4.9); SODIUM 141 mmol/L (136-145); eGFR NON AFRICAN AMERICAN > 90 mL/min (90-120)
[2019-03-14 07:17] LABS: CALC OSMOLALITY 283 mosm/kg (275-300); POTASSIUM - SERUM 3.8 mmol/L (3.5-5.1); UREA NITROGEN 7 mg/dL (7-18)
[2019-03-14 08:05] VITALS: BP 128/63
[2019-03-14 12:56] LABS: HEMATOCRIT 27.7 % (42.0-54.0); HEMOGLOBIN 8.8 g/dL (13.5-17.5)
[2019-03-14 17:20] VITALS: BP 152/79
[2019-03-14 18:44] VITALS: BP 135/65
--- NOTE | 2019-03-14 19:30 | NUR ---
ROUNDS COMPLETED. VSS, AA0X4, NO S/S OF DISTRESS. PIV INTACT. IRON INFUSION COMPLETED. LEFT AKA NOTED. PT DENIES ANY NEED FOR PAIN AT THIS TIME. WILL CPOC. CL WITHIN REACH.
[2019-03-14 21:05] LABS: HEMOGLOBIN 8.4 g/dL (13.5-17.5)
[2019-03-15 00:11] VITALS: BP 130/67
[2019-03-15 04:00] VITALS: BP 144/73
--- NOTE | 2019-03-15 05:23 | NUR ---
FSBS 265, 10 UNIT OF HUMALOG GIVEN PER SLIDING SCALE. PT HAD ONE BM. WILL CPOC.
[2019-03-15 06:31] LABS: BASOPHILS 0.4 % (0-2); HEMOGLOBIN 8.3 g/dL (13.5-17.5); IMMATURE GRANULOCYTES 0.6 % (0-5); LYMPHOCYTES 19.3 % (15-50); MCH 26.9 pg (26.0-34.0); MCHC 31.9 g/dL (31.0-37.0); MCV 84.4 fL (80.0-100.0); MEAN PLATELET VOLUME 9.6 fL (7.4-10.4); MONOCYTES 9.7 % (2-11); PLATELET COUNT 159 10x3/uL (130-400); RBC 3.08 10x6/uL (4.20-6.10); RDW 15.1 % (11.5-14.5); WBC 6.9 10x3/uL (4.8-10.8)
[2019-03-15 07:01] LABS: CALC OSMOLALITY 281 mosm/kg (275-300); CALCIUM 7.6 mg/dL (8.5-10.1); CHLORIDE - SERUM 103 mmol/L (98-107); CREATININE - SERUM 0.9 mg/dL (0.6-1.3); MAGNESIUM - SERUM 1.9 mg/dL (1.8-2.4); PHOSPHOROUS 2.3 mg/dL (2.5-4.9); POTASSIUM - SERUM 3.4 mmol/L (3.5-5.1); SODIUM 138 mmol/L (136-145); UREA NITROGEN 6 mg/dL (7-18); eGFR NON AFRICAN AMERICAN 88 mL/min (90-120)
[2019-03-15 07:02] LABS: GLUCOSE 251 mg/dL (74-106)
[2019-03-15 07:30] VITALS: BP 133/69
--- NOTE | 2019-03-15 07:45 | NUR ---
PT SITTING UP IN BED. IV LOCATED TO THE RT AC WITH SOILED DRESSING. PROVIDED DRESSING CHNAGE TO THE SITE. PATENT, WITH NO SWELLING OR REDNESS, SALINE LOCK. PT DENIES ANY PAIN AT THIS TIME. BED IN LOWEST POSITION, SIDE RAILS UP X2, CALL LIGHT WITH IN REACH. CONTINUE WITH PLAN OF CARE.
[2019-03-15 11:30] VITALS: BP 123/52
[2019-03-15 14:03] LABS: HEMATOCRIT 26.6 % (42.0-54.0); HEMOGLOBIN 8.5 g/dL (13.5-17.5)
--- NOTE | 2019-03-15 14:45 | NUR ---
PT CALLED STAFF TO ROOM. PT CALM, NO ACUTE DISTRESS NOTED. PT RESTING ON RIGHT SIDE, SKIN WARM AND DRY. STATES TO STAFF "I WAS DOING SOME ARM EXERCISES AND WHEN I QUIT I HAD A TINGLING SENSATION AND SOME PRESSURE RIGHT HERE (POINTING TO LEFT LOWER CHEST)". PT CONTINUES TO VOICE DISCOMFORT AT THIS TIME, BUT RATES PAIN 1/10. VITALS ASSESSED AT THIS TIME. BP 118/66, HR 98, RESP 20, O2 SAT 98% TEMP 99.0. PT VOICES CONCERN HE VOICES CARDIAC HISTORY. [address] LINTON TO INFORM HIM OF PT COMPLAINTS. CARDIAC ENZYME SERIES ORDERED WITH EKG ALSO TO ADMINISTER ASA 325MG X ONE. NOTIFIED COLT WITH RESPIRATORY REGARDING ORDER FOR EKG.
[2019-03-15 15:48] LABS: CKMB 1.5 U/L (0.0-3.6); CREATINE KINASE 186 UL (21-232); TROPONIN-I 0.052 ng/mL (0.000-0.060)
[2019-03-15 15:49] VITALS: BP 118/66
--- NOTE | 2019-03-15 19:25 | NUR ---
PATIENT UP TO RESTROOM AND DENIES NEEDS AT THIS TIME. ENCOURAGED THE PATIENT TO CALL IF HE HAS NEEDS. WILL CONTINUE TO MONITOR.
[2019-03-15 22:05] LABS: CKMB 1.6 U/L (0.0-3.6); CREATINE KINASE 182 UL (21-232)
[2019-03-15 22:06] LABS: TROPONIN-I 0.067 ng/mL (0.000-0.060)
--- NOTE | 2019-03-16 01:02 | NUR ---
GAVE PATIENT A SNACK FOR BLOOD GLUCOSE RESULTS, 75
[2019-03-16 03:00] LABS: BASOPHILS 0.5 % (0-2); EOSINOPHILS 4.7 % (0-7); HEMATOCRIT 27.1 % (42.0-54.0); HEMOGLOBIN 8.5 g/dL (13.5-17.5); IMMATURE GRANULOCYTES 0.8 % (0-5); LYMPHOCYTES 20.3 % (15-50); MCH 26.8 pg (26.0-34.0); MCHC 31.4 g/dL (31.0-37.0); MCV 85.5 fL (80.0-100.0); MEAN PLATELET VOLUME 9.2 fL (7.4-10.4); MONOCYTES 12.1 % (2-11); NEUTROPHILS 61.6 % (40-80); PLATELET COUNT 160 10x3/uL (130-400); RBC 3.17 10x6/uL (4.20-6.10); RDW 15.1 % (11.5-14.5); WBC 6.2 10x3/uL (4.8-10.8)
[2019-03-16 03:27] LABS: CARBON DIOXIDE 30.4 mmol/L (21.0-32.0); CHLORIDE - SERUM 106 mmol/L (98-107); CKMB 1.5 U/L (0.0-3.6); CREATINE KINASE 177 UL (21-232); CREATININE - SERUM 0.9 mg/dL (0.6-1.3); SODIUM 143 mmol/L (136-145); TROPONIN-I 0.059 ng/mL (0.000-0.060); UREA NITROGEN 7 mg/dL (7-18); eGFR NON AFRICAN AMERICAN 88 mL/min (90-120)
[2019-03-16 03:30] LABS: CALC OSMOLALITY 282 mosm/kg (275-300); GLUCOSE 95 mg/dL (74-106); POTASSIUM - SERUM 3.3 mmol/L (3.5-5.1)
--- NOTE | 2019-03-16 08:10 | NUR ---
PATIENT LYING IN BED WITH EYES OPEN. DENIES ANY PAIN OR NEEDS AT THIS TIME. BED IN LOW POSITION, CALL LIGHT IN EASY REACH. IV IN RIGHT AC PATENT. WILL CONTINUE TO MONITOR.
[2019-03-16 08:59] VITALS: Ht 188 cm; Wt 137.8 kg
--- NOTE | 2019-03-16 13:13 | NUR ---
Nutrition follow-up: Diet: ADA consistent CHO PO intake 75-100% of meals Labs reviewed Wt: 304# +BM RDN following.
--- NOTE | 2019-03-16 17:32 | NUR ---
DISCHARGE PAPERWORK COMPLETERD AND REVIEWED WITH PATIENT. ASSISTED TO PRIVATE CAR VIA WHEELCHAIR. ACCOMPANIED WITH .
--- NOTE | 2019-03-17 09:00 | EC ---
PATIENT:ROMARIO CASTRO JR DATE OF SERVICE: 03/10/19 SEX: M MEDICAL RECORD: [id number] DATE OF : 43 LOCATION:D.M3 D.120 AGE OF PATIENT: 73 ADMISSION DATE: 03/10/19 REFERRING PHYSICIAN: INTERPRETING PHYSICIAN: JG SAUCEDO MD ECHOCARDIOGRAM REPORT ECHO CHARGES 4 ECHO COMPLETE Date: 03/16/19 CLINICAL DIAGNOSIS: SC ECHOCARDIOGRAPHIC MEASUREMENTS (adult normal given) AC root (d.<3.7cm) 2.8 cm LV Septum d (<1.2 cm> 1.5 cm Valve Excursion 1.4 cm LV Septum (systole) 1.7 cm Left Atria (s.<4.0cm> 3.9 cm LVPW d(<1.2cm) 1.5 cm RV (d.<2.3cm) 3.6 cm LVPW (sytole) 1.7 cm LV diastole(<5.6CM) 5.4 cm MV E-F(>70mm/sec) cm LV systole 4.1 cm LVOT Diameter 2.3 cm MV exc.(>10mm) 1.7 cm Est.ejection fraction (50-75%) % DOPPLER: LVIT cm/sec A 94.0 cm/sec E 134 cm/sec LA cm/sec RVSP 17 mmHg LVOT 85 cm/sec AOP1/2T m/s Asc. Ao 159 cm/sec RVOT 90 cm/sec RA cm/sec PA 128 cm/sec AV Gradient Peak 10.06mmHg AV Mean 5.78 mmHg AV Area 1.8 cm MV Gradient Peak 9.24 mmHg MV Mean 2.92 mmHg MV Area cm COMMENTS: [employer] Person: 2 KARYN PARHAM Magazine Supervisor: 3 Dr. Jansen TAPE# PACS Pericardial Effusion N DATE OF SERVICE: Adequate 2-D echo, color-flow and spectral Doppler, and M-mode. LVH is present. LV internal dimensions are normal. Wall motion is normal. EF is greater than or equal to 55%. Aortic valve is tricuspid. No evidence of stenosis by Doppler interrogation. Left atrium is normal at 3.9 cm. Mitral valve shows no prolapse. Mild MR. Right-sided chambers are grossly normal. Mild TR. ECHOCARDIOGRAM REPORT [id number] ROMARIO CASTRO Susie DUNHAM TRANSINT:[id number] Voice Confirmation ID: [id number] DOCUMENT ID: [id number] JG SAUCEDO MD at 0900 CC: [id number] DICTATION DATE: 03/16/19 1340 REFINERY OPERATOR VAPOR RECOVERY UNIT: 03/16/19 1421 DIS IN 03/16/19 [facility] [address] [id number]
--- NOTE | 2019-03-17 19:00 | MORECARE ---
CASE MANAGEMENT DISCHARGE SUMMARY PATIENT: ROMARIO CASTRO JR UNIT: [id number] ADM DATE: 03/10/19 AGE: 73 : 43 SEX: M ROOM/BED: D.1206 AUTHOR: VAL,DOC PHYSICIAN: REFERRING PHYSICIAN: SOHAN LINTON MD DATE OF SERVICE: 03/17/19 Discharge Plan Patient Name: ROMARIO CASTRO Facility: [facility]:[place] : 1945 Planned Disposition: Home Anticipated Discharge Date: 03/16/19 Discharge Date: 03/16/2019 Expected LOS: 6 Initial Reviewer: [email or web address] Initial Review Date: 03/11/2019 Generated: 03/17/19 7:59 pm DCP- Discharge Planning Updated by [email or web address]: Amelia Martines on 03/11/19 3:[address] Patient Name: ROMARIO CASTRO Admission Status: ER Accout number: [id number] Admission Date: 03-10-2019 : 1945 Admission Diagnosis: Attending: SOHAN LINTON Current LOS: 1 Anticipated DC Date: Planned Disposition: Home Primary Insurance: MEDICARE A & B Discharge Planning Comments: CM met with patient at bedside after explaining CM role and obtaining verbal consent. Patient lives at home with his Marta and plans to return there upon discharge. Patient feels this would be a safe discharge. CM discussed availability / needs of home health and medical equipment. Patient denies any discharge needs at this time. Patient states he will have his drive him home upon discharge. CM will continue to follow and assist as needed with discharge planning / needs. Protection Specialist: Amelia Martines DCPIA - Discharge Planning Initial Assessment Updated by [email or web address]: Amelia Martines on 03/11/19 4:16 pm * Is the patient Alert and Oriented? Yes * How many steps to enter\exit or inside your home? RAMP * PCP RICK CASTELAN * [facility] [place] * Preadmission Environment Home with Family * ADLs Independent * Equipment Wheelchair * List name and contact numbers for known caregivers / representatives who currently or will assist patient after discharge: MARTA CASTRO - - [phone] * Verbal permission to speak to the caregivers and representatives has been obtained from the patient. Yes * Community resources currently utilized None * Additional services required to return to the preadmission environment? No * Can the patient safely return to the preadmission environment? Yes * Has this patient been hospitalized within the prior 30 days at any hospital? No Coverage Notice Reviewer: [email or web address] Amber Gifford Notice Issued Date-Time: 03/16/2019 17:06 Notice Type: IM Discharge Notice Notice Delivered To: Patient Relationship to Patient: Self Bacteriology Technician Name: Delivery Method: HAND - Hand Delivered Julia Days: Prior Verbal Notification: Recipient Understood Notice: Yes Recipient Signature: Yes Med Rec Note Co-signed by Attending: Coverage Notice Comment: Discussed discharge IMM. Patient voiced no questions or concerns. Signature obtained. Signed copy to the patient. Signed copy to the chart. Last DP export: 03/11/19 3:32 pm Patient Name: ROMARIO CASTRO Page [id number] at 1900 All edits/amendments must be made on the electronic document DICTATION DATE: 03/17/191858 [facility] LEADER: MARIA DOLORES 03/17/191858 RPT#: [id number] DC DATE:03/16/19 STATUS: DIS IN [facility] [address] [place] [address] END OF REPORT
== END 2019-03-16 17:30 | disposition home or self-care (01) | DRG 377 ==
LOC: D.ER 22:01 → D.ICU 23:17 → D.M3 23:17
PROVIDERS: Family Medicine; Internal Medicine Gastroenterology; ADMIT Internal Medicine Nephrology; ATTEND Internal Medicine Nephrology
PROC: 0DJ08ZZ Inspection of Upper Intestinal Tract, Via Natural or Artificial Opening Endoscopic (ICD-10-PCS; principal; 2019-03-11 07:30)
PROC: 0DJD8ZZ Inspection of Lower Intestinal Tract, Via Natural or Artificial Opening Endoscopic (ICD-10-PCS; 2019-03-13)
DX: K92.2 Gastrointestinal hemorrhage, unspecified (principal); I21.A1 Myocardial infarction type 2; D62 Acute posthemorrhagic anemia; I10 Essential (primary) hypertension; E78.5 Hyperlipidemia, unspecified; E11.65 Type 2 diabetes mellitus with hyperglycemia; I25.10 Atherosclerotic heart disease of native coronary artery without angina pectoris; Z98.61 Coronary angioplasty status; E03.9 Hypothyroidism, unspecified; M19.90 Unspecified osteoarthritis, unspecified site; K64.8 Other hemorrhoids; K29.70 Gastritis, unspecified, without bleeding; K21.0 Gastro-esophageal reflux disease with esophagitis; E66.9 Obesity, unspecified; Z89.612 Acquired absence of left leg above knee